=== PATIENT | female | born 1930 | race Caucasian/White ===

== ENCOUNTER 2017-08-10 03:17 | Inpatient (IN) | payer OTHER ==
[2017-08-10 03:29] VITALS: BMI 23.1
[2017-08-10] MEDS ORDERED: ACETAMINOPHEN INJECTION 100 ML IVPB ONE (03:36)
[2017-08-10] MEDS ORDERED: VANCOMYCIN 1,000 MG in DEXTROSE 5%-WATER - 250 ML IVPB ONE (04:05)
[2017-08-10] MEDS ORDERED: SODIUM CHLORIDE 1,000 ML IV STA ×2 (04:05→04:09)
[2017-08-10 04:25] LABS: BASO % 0.1 % (0-2.0); HEMATOCRIT 19.7 % (32.4-45.2); LYMPH % 5.6 % (8-40); MCH 26.6 pg (25.7-33.7); MEAN CELL VOLUME 83.2 fl (80-96); MEAN PLT VOLUME 8.2 fl (7.5-11.1); MONO % 7.6 % (3.8-10.2); NEUT % 86.7 % (42.8-82.8); PLATELET COUNT 238 K/MM3 (134-434); RBC 2.36 M/mm3 (3.60-5.2); WHITE BLOOD COUNT 6.6 K/mm3 (4.0-10.0)
[2017-08-10 04:30] LABS: HEMOGLOBIN 6.3 GM/dL (10.7-15.3)
[2017-08-10] MEDS ORDERED: VANCOMYCIN 1 GRAM (PRE-DOCKED) 1,000 MG/250 ML BAG IVPB ONE (04:31)
[2017-08-10 04:36] LABS: VENOUS PH 7.4 (7.32-7.42); VENOUS PO2 51.3 mmHg (28-48)
[2017-08-10 04:37] LABS: INR 1.58 (0.82-1.09); PROTHROMBIN TIME (PATIENT) 17.8 SEC (9.98-11.88)
[2017-08-10 04:40] LABS: ACTIVATED PTT 42.4 SECONDS (26.9-34.4)
[2017-08-10 04:49] LABS: ALBUMIN 1.2 g/dl (3.4-5.0); ANION GAP 9 (8-16); BILIRUBIN,TOTAL 0.3 mg/dL (0.2-1.0); BLOOD UREA NITROGEN 17 mg/dL (7-18); CHLORIDE 122 mmol/L (98-107); CO2 15 mmol/L (21-32); CREATININE 0.2 mg/dL (0.55-1.02); GLUCOSE,RANDOM 74 mg/dL (74-106); SGOT/AST 14 U/L (15-37); SGPT/ALT 12 U/L (12-78); SODIUM 146 mmol/L (136-145); TOT PROT 3.7 g/dl (6.4-8.2)
[2017-08-10 04:51] LABS: ALK PHOS 64 U/L (45-117)
[2017-08-10 04:55] LABS: CALCIUM < 5.0 mg/dL (8.5-10.1); POTASSIUM 2.4 mmol/L (3.5-5.1)
[2017-08-10] MEDS ORDERED: CALCIUM GLUCONATE 10% - 1,000 MG/10 ML VIAL IVPB ONE ×2 (04:55→04:58)
--- NOTE | 2017-08-10 05:13 | PDOC ---
History of Present Illness - General History Source: EMS, Old Records, Unavil. due to pt. cond. Exam Limitations: Dementia, Unresponsive - History of Present Illness Initial Comments: 08/10/17 05:08 Pt seen immediately upon arrival to the ER for SEPSIS, FEVER, HYPOTENSION. 86yoF hx of severe dementia, stroke w/ contractures, colostomy (unclear reason) , ovarian CA, prior UTI presents from [place] after EMS called "GI bleed and AMS." EMS reports that pt was consitpated, NH gave her a laxative and when the arrived she was covered in light brown nonblood stool from her ostomy. Pt found to be febrile to 103F at that time w/ hypotension to SBP 80's, hypoxia to 90% on RA and tachycardia to 100-110. Unknown baseline mental status, but per report , pt is now altered. Pt makes no verbal response, withdraws from painful stimuli. ROS UTO PMHx as per [facility] records Allerg: Cefalosporins <Madeleine Vallejo - Last Filed: 08/10/17 05:23> <Ulysses Oneal - Last Filed: 08/12/17 01:09> - General Chief Complaint: SIRS, Suspected/Possible Stated Complaint: GI BLEED Past History - Travel Traveled outside of the country in the last 30 days: No - Past Medical History Dementia: Yes - Suicide/Smoking/Psychosocial Hx Smoking History: Unknown if ever smoked Have you smoked in the past 12 months: No Information on smoking cessation initiated: No Hx Alcohol Use: No Drug/Substance Use Hx: No <Madeleine Vallejo - Last Filed: 08/10/17 05:23> <Ulysses Oneal - Last Filed: 08/12/17 01:09> - Past Medical History Allergies/Adverse Reactions: Allergies Allergy/AdvReac Type Severity Reaction Status Date / Time cefuroxime Allergy Verified 08/10/17 03:25 donepezil [From Aricept] Allergy Verified 08/10/17 03:25 meloxicam Allergy Verified 08/10/17 03:25 pregabalin Allergy Verified 08/10/17 03:25 Home Medications: Ambulatory Orders Acetaminophen [Tylenol -] 650 mg PO Q6H PRN 08/10/17 Amitriptyline HCl 25 mg PO HS 08/10/17 Baclofen [Lioresal -] 10 mg PO QID 08/10/17 Beta-Carotene(A)-Vits C and E [E-400 C-500 & Beta Carotene] 1 each PO DAILY 11/22 Bisacodyl Suppository [Dulcolax Suppository -] 10 mg RC HS PRN 08/10/17 Cholecalciferol (Vitamin D3) [Vitamin D3] 1,000 unit PO DAILY 08/10/17 Citalopram Hydrobromide [Celexa -] 20 mg PO HS 08/10/17 Docusate Sodium [Colace] 100 mg PO TID 08/10/17 Estradiol [Estrace] 42.5 gm VG ASDIR 08/10/17 Fesoterodine Fumarate [Toviaz] 4 mg PO DAILY 08/10/17 Gabapentin [Neurontin] 300 mg PO BID 08/10/17 Galantamine HBr [Razadyne ER] 8 mg PO DAILY 08/10/17 Heparin - 5,000 unit SQ Q12H 08/10/17 Lactobacillus Acidophilus [Acidophilus] 1 each PO BID 08/10/17 Levothyroxine [Synthroid -] 50 mcg PO DAILY 08/10/17 Linaclotide [Linzess] 290 mcg PO DAILY 08/10/17 Mag Hydrox/Al Hydrox/Simeth [Mylanta Oral Suspension -] 30 ml PO Q6H PRN Magnesium Hydrox 2400MG/30Ml [Milk of Magnesia -] 30 ml PO DAILY PRN 08/10/17 Melatonin 3 mg PO HS 08/10/17 Mirabegron [Myrbetriq] 50 mg PO DAILY 08/10/17 Multivitamins [Tab-A-Vit -] 1 tab PO DAILY 08/10/17 [place]-3 Fatty Acids [[place]-3] 1,000 mg PO DAILY 08/10/17 Pramipexole Di-HCl [Mirapex] 0.25 mg PO TID 08/10/17 Sennosides [Senokotxtra] 17.2 mg PO HS 08/10/17 Simethicone 80 mg PO BID PRN 08/10/17 Sodium Chloride 1,000 mg PO BID 08/10/17 Ubidecarenone [Co Q-10] 100 mg PO DAILY 08/10/17 oxyCODONE SR [Oxycontin] 10 mg PO Q12H 08/10/17 Review of Systems - Review of Systems Able to Perform ROS?: No (no verbal response) <Madeleine Vallejo - Last Filed: 08/10/17 05:23> *Physical Exam - Vital Signs Last Vital Signs Temp Pulse Resp BP Pulse Ox 103.0 F H 106 H 16 77/55 90 L 08/10/17 03:26 08/10/17 03:26 08/10/17 03:26 08/10/17 03:26 08/10/17 03:26 - Physical Exam Comments: 08/10/17 05:13 NAD, ch ronically ill appearing eyes closed, KATHRYN MM very dry, no cervical LAD tachy, no m/r/g moderate air movement no clear tenderness, Ostomy pink no rash, no visible decub no edema, + contractures of BLE no rash A&O x 0 <JessychachaMadeleine Alvaro - Last Filed: 08/10/17 05:23> - Vital Signs Last Vital Signs Temp Pulse Resp BP Pulse Ox 103.0 F H 106 H 16 77/55 90 L 08/10/17 03:26 08/10/17 03:26 08/10/17 03:26 08/10/17 03:26 08/10/17 03:26 <Ulysses Oneal - Last Filed: 08/12/17 01:09> Procedures - Intubation Intubation Method: nasotracheal Blade used: Mac Tube Size (Fr): 8.0 Medications: Etomidate, Rocuronium Tube position confirmed by: Direct visualization, CO2 detector, Chest x-ray, Breath sounds Breath Sounds after Intubation: equal Intubation Complications: no complications (Patient with unscucesful paralysis following first Rocorunium administration 100mg. Required second push of Osbaldo with success. ) Post Intubation Xray: Yes <Ulysses Oneal - Last Filed: 08/12/17 01:09> ED Treatment Course - LABORATORY CBC & Chemistry Diagram: 08/10/17 04:11 08/10/17 04:11 - ADDITIONAL ORDERS Additional order review: Laboratory Results 08/10/17 08/10/17 08/10/17 04:24 04:11 04:11 PT with INR INR PTT (Actin FS) VBG pH 7.40 POC VBG pCO2 42.0 POC VBG pO2 51.3 H Mixed VBG HCO3 25.7 H Sodium 146 H Potassium 2.4 L* Chloride 122 H Carbon Dioxide 15 L Anion Gap 9 BUN 17 Creatinine 0.2 L Creat Clearance w eGFR > 60 Random Glucose 74 Lactic Acid 1.4 Calcium < 5.0 L* Total Bilirubin 0.3 AST 14 L ALT 12 Alkaline Phosphatase 64 Creatine Kinase 31 Troponin I 0.03 Total Protein 3.7 L Albumin 1.2 L Crossmatch 08/10/17 08/10/17 04:11 04:11 PT with INR 17.80 H INR 1.58 H PTT (Actin FS) 42.4 H VBG pH POC VBG pCO2 POC VBG pO2 Mixed VBG HCO3 Sodium Potassium Chloride Carbon Dioxide Anion Gap BUN Creatinine Creat Clearance w eGFR Random Glucose Lactic Acid Calcium Total Bilirubin AST ALT Alkaline Phosphatase Creatine Kinase Troponin I Total Protein Albumin Crossmatch See Detail 08/10/17 04:11 RBC 2.36 L MCV 83.2 MCHC 32.0 RDW 17.0 H MPV 8.2 Neutrophils % 86.7 H Lymphocytes % 5.6 L Monocytes % 7.6 Eosinophils % 0.0 Basophils % 0.1 - Medications Given in the ED: ED Medications Discontinued Medications Generic Name Dose Route Start Last Admin Trade Name Freq PRN Reason Stop Dose Admin Sodium Chloride 1,000 mls @ 1,000 mls/hr 08/10/17 04:05 08/10/17 04:33 Normal Saline - IV 08/10/17 05:04 1,000 mls/hr ASDIR STA Administration Vancomycin HCl 1,000 mg/ 250 mls @ 250 mls/hr 08/10/17 04:05 08/10/17 04:33 Dextrose IVPB 08/10/17 05:04 250 mls/hr ONCE ONE Administration Protocol <Madeleine Vallejo - Last Filed: 08/10/17 05:23> - LABORATORY CBC & Chemistry Diagram: 08/11/17 11:13 08/11/17 11:13 - ADDITIONAL ORDERS Additional order review: Laboratory Results 08/10/17 08/10/17 08/10/17 06:00 04:24 04:11 PT with INR INR PTT (Actin FS) VBG pH 7.40 POC VBG pCO2 42.0 POC VBG pO2 51.3 H Mixed VBG HCO3 25.7 H Sodium Potassium Chloride Carbon Dioxide Anion Gap BUN Creatinine Creat Clearance w eGFR Random Glucose Lactic Acid 1.4 Calcium Total Bilirubin AST ALT Alkaline Phosphatase Creatine Kinase Troponin I Total Protein Albumin Urine Color Nyla Urine Appearance Slcloudy Urine pH 5.0 Ur Specific [place] 1.021 Urine Protein Negative Urine Glucose (UA) Negative Urine Ketones Trace H Urine Blood 1+ H Urine Nitrite Negative Urine Bilirubin 2.0 Urine Urobilinogen 4.0 e.u/dl H Ur Leukocyte Esterase 1+ H Urine WBC (Auto) 16 Urine RBC (Auto) 3 Ur Epithelial Cells Rare Urine Bacteria Many Hyaline Casts 6 Urine Mucus Rare Blood Type Antibody Screen Crossmatch 08/10/17 08/10/17 08/10/17 04:11 04:11 04:11 PT with INR 17.80 H INR 1.58 H PTT (Actin FS) 42.4 H VBG pH POC VBG pCO2 POC VBG pO2 Mixed VBG HCO3 Sodium 146 H Potassium 2.4 L* Chloride 122 H Carbon Dioxide 15 L Anion Gap 9 BUN 17 Creatinine 0.2 L Creat Clearance w eGFR > 60 Random Glucose 74 Lactic Acid Calcium < 5.0 L* Total Bilirubin 0.3 AST 14 L ALT 12 Alkaline Phosphatase 64 Creatine Kinase 31 Troponin I 0.03 Total Protein 3.7 L Albumin 1.2 L Urine Color Urine Appearance Urine pH Ur Specific [place] Urine Protein Urine Glucose (UA) Urine Ketones Urine Blood Urine Nitrite Urine Bilirubin Urine Urobilinogen Ur Leukocyte Esterase Urine WBC (Auto) Urine RBC (Auto) Ur Epithelial Cells Urine Bacteria Hyaline Casts Urine Mucus Blood Type O NEGATIVE Antibody Screen Negative Crossmatch See Detail 08/10/17 04:11 RBC 2.36 L MCV 83.2 MCHC 32.0 RDW 17.0 H MPV 8.2 Neutrophils % 86.7 H Lymphocytes % 5.6 L Monocytes % 7.6 Eosinophils % 0.0 Basophils % 0.1 - RADIOLOGY Radiology Studies Ordered: Category Date Time Status CXRPORT [CHEST X-RAY PORTABLE*] [RAD] Stat Radiology 08/10/17 06:56 Taken - Medications Given in the ED: ED Medications Discontinued Medications Generic Name Dose Route Start Last Admin Trade Name Freq PRN Reason Stop Dose Admin Calcium Gluconate 1,000 mg 08/10/17 04:55 08/10/17 06:17 Calcium Gluconate 10% - IVPB 08/10/17 04:56 1,000 mg ONCE ONE Administration Calcium Gluconate 1,000 mg 08/10/17 04:58 03/06/18 06:16 Calcium Gluconate 10% - IVPB 08/10/17 04:59 1,000 mg ONCE ONE Administration Etomidate 20 mg 08/10/17 06:04 08/10/17 06:17 Amidate - IVPUSH 08/10/17 06:05 20 mg NOW ONE Administration Levofloxacin 750 mg in 150 mls @ 100 mls/hr 08/10/17 04:08 08/10/17 04:33 Levaquin 750 Mg Premixed Ivpb - IVPB 08/10/17 05:37 100 mls/hr ONCE ONE Administration Sodium Chloride 1,000 mls @ 1,000 mls/hr 08/10/17 04:05 08/10/17 04:33 Normal Saline - IV 08/10/17 05:04 1,000 mls/hr ASDIR STA Administration Vancomycin HCl 1,000 mg/ 250 mls @ 250 mls/hr 08/10/17 04:05 08/10/17 04:33 Dextrose IVPB 08/10/17 05:04 250 mls/hr ONCE ONE Administration Protocol Sodium Chloride 1,000 mls @ 1,000 mls/hr 08/10/17 04:09 08/10/17 04:33 Normal Saline - IV 08/10/17 05:08 1,000 mls/hr ASDIR STA Administration Rocuronium [place] 100 mg 08/10/17 06:04 08/10/17 06:17 Zemuron - IVPUSH 08/10/17 06:05 100 mg ONCE ONE Administration <Ulysses Oneal - Last Filed: 08/12/17 01:09> Medical Decision Making - Critical Care Time Total Critical Care Time (minutes): 120 Critical Care Statement: The care of this patient involved high complexity decision making to prevent further life threatening deterioration of the patient 's condition and/or to evaluate & treat vital organ system(s) failure or risk of failure. - Medical Decision Making 08/10/17 05:16 86yoF presnets w/ AMS, dehydration, fever, tachycardia, hypoxia, hypotension c/ w severe sepsis of unknown etiology. - labs - cultures - foely/ua/ucx - ivf, levaquin, vanco - blood cultures x 2 - iv x 2 - cardaic moniotr - O2 via NRB - CXR - ICU. 08/10/17 05:21 Laboratory Tests 08/10/17 08/10/17 08/10/17 04:11 04:11 04:11 WBC 6.6 Hgb 6.3 L* Hct 19.7 L Plt Count 238 Sodium 146 H Potassium 2.4 L* Chloride 122 H Carbon Dioxide 15 L BUN 17 Creatinine 0.2 L Lactic Acid 1.4 Calcium < 5.0 L* PRBC ordered repeat BMP, electolyte repletion ordered admit ICU. Dr. Guaman accepting. <Madeleine Vallejo - Last Filed: 08/10/17 05:23> *DC/Admit/Observation/Transfer - Discharge Dispostion Admit: Yes <Madeleine Vallejo - Last Filed: 08/10/17 05:23> <Ulysses Oneal - Last Filed: 08/12/17 01:09> Diagnosis at time of Disposition: Severe sepsis - Discharge Dispostion Condition at time of disposition: Critical
[2017-08-10] MEDS ORDERED: RAPID SEQUENCE INTUBATION KIT NR ONE ×2 (05:59→06:38)
[2017-08-10] MEDS ORDERED: ETOMIDATE 40 MG/20 ML VIAL IVPUSH ONE (06:04)
[2017-08-10] MEDS ORDERED: ROCURONIUM BROMIDE 50 MG/5 ML VIAL IVPUSH ONE (06:04)
[2017-08-10] MEDS ORDERED: DOPAMINE 400 MG/D5W - 400,000 MCG/250 ML INFUS.BAG IVPB SCH (06:15)
[2017-08-10] MEDS ORDERED: DOPAMINE 400 MG/D5W - 400,000 MCG/250 ML INFUS.BAG IVPB ONE (06:16)
[2017-08-10] MEDS: KCL 10 MEQ IVPB 10 MEQ/100 ML INFUS.BAG IVPB SCH (06:17)
[2017-08-10 06:35] LABS: URINE APPEARANCE SLCLOUDY; URINE BLOOD 1+ (NEGATIVE); URINE COLOR AMBER; URINE GLUCOSE (UA) NEGATIVE (NEGATIVE); URINE KETONE TRACE (NEGATIVE); URINE NITRITE NEGATIVE (NEGATIVE); URINE PROTEIN NEGATIVE (NEGATIVE); URINE UROBILINOGEN 4.0 E.U/dl mg/dL (0.2-1.0)
[2017-08-10 06:44] LABS: URINE LEUK ESTERASE 1+ (NEGATIVE)
[2017-08-10 06:45] LABS: EPI CELLS RARE /HPF (FEW); URINE BACTERIA MANY /hpf (NONE SEEN); URINE HYALINE CAST 6 /lpf; URINE MUCUS RARE
[2017-08-10] MEDS ORDERED: PROPOFOL 1,000,000 MCG/100 ML VIAL ONE (06:47)
[2017-08-10] MEDS ORDERED: CALCIUM GLUCONATE 10% - 1,000 MG/10 ML VIAL ONE (06:55)
[2017-08-10] MEDS ORDERED: PANTOPRAZOLE SODIUM 80 MG in SODIUM CHLORIDE 100 ML IVPB SCH (07:00)
--- NOTE | 2017-08-10 07:58 | HP ---
CHIEF COMPLAINT: ams PCP: from [facility] HISTORY OF PRESENT ILLNESS: This is an 86 year old female brought in by ambulance from [facility] after being found laying in her bed, covered in her own feces with a fever of 103F, hypotensive, SBP 80s. As per chart and report, patient was given a laxative at [place]. She has colostomy bag, which was filled with light brown stool, no melena or BRB reported. Baseline mental status is mild dementia, as per [place], she was altered. ER course was notable for: Hypotensive. Hypoxic. Febrile. Severely anemic. Hypokalemic. Sepsis protocol activated. She was intubated in the ER, and started on dopamine due to continuos hypotension despite fluid resuscitation. Recent Travel: no PAST MEDICAL HISTORY: mild dementia, stroke with residual contracture, colostomy, ovarian CA, UTI PAST SURGICAL HISTORY:unknown Social History:unknown Family History:unknown Allergies cefuroxime Allergy (Verified 08/10/17 03:25) donepezil [From Aricept] Allergy (Verified 08/10/17 03:25) meloxicam Allergy (Verified 08/10/17 03:25) pregabalin Allergy (Verified 08/10/17 03:25) HOME MEDICATIONS: Home Medications Medication Instructions Recorded Acetaminophen [Tylenol -] 650 mg PO Q6H PRN 08/10/17 Amitriptyline HCl 25 mg PO HS 08/10/17 Baclofen [Lioresal -] 10 mg PO QID 08/10/17 Beta-Carotene(A)-Vits C and E 1 each PO DAILY 08/10/17 [E-400 C-500 & Beta Carotene] Bisacodyl Suppository [Dulcolax 10 mg RC HS PRN 08/10/17 Suppository -] Cholecalciferol (Vitamin D3) 1,000 unit PO DAILY 08/10/17 [Vitamin D3] Citalopram Hydrobromide [Celexa -] 20 mg PO HS 08/10/17 Docusate Sodium [Colace] 100 mg PO TID 08/10/17 Estradiol [Estrace] 42.5 gm VG ASDIR 08/10/17 Fesoterodine Fumarate [Toviaz] 4 mg PO DAILY 08/10/17 Gabapentin [Neurontin] 300 mg PO BID 08/10/17 Galantamine HBr [Razadyne ER] 8 mg PO DAILY 08/10/17 Heparin - 5,000 unit SQ Q12H 08/10/17 Lactobacillus Acidophilus 1 each PO BID 08/10/17 [Acidophilus] Levothyroxine [Synthroid -] 50 mcg PO DAILY 08/10/17 Linaclotide [Linzess] 290 mcg PO DAILY 08/10/17 Mag Hydrox/Al Hydrox/Simeth 30 ml PO Q6H PRN 08/10/17 [Mylanta Oral Suspension -] Magnesium Hydrox 2400MG/30Ml [Milk 30 ml PO DAILY PRN 08/10/17 of Magnesia -] Melatonin 3 mg PO HS 08/10/17 Mirabegron [Myrbetriq] 50 mg PO DAILY 08/10/17 Multivitamins [Tab-A-Vit -] 1 tab PO DAILY 08/10/17 [place]-3 Fatty Acids [[place]-3] 1,000 mg PO DAILY 08/10/17 Pramipexole Di-HCl [Mirapex] 0.25 mg PO TID 08/10/17 Sennosides [Senokotxtra] 17.2 mg PO HS 08/10/17 Simethicone 80 mg PO BID PRN 08/10/17 Sodium Chloride 1,000 mg PO BID 08/10/17 Ubidecarenone [Co Q-10] 100 mg PO DAILY 08/10/17 oxyCODONE SR [Oxycontin] 10 mg PO Q12H 08/10/17 REVIEW OF SYSTEMS unable to attain PHYSICAL EXAMINATION Vital Signs - 24 hr 08/10/17 08/10/17 03:26 07:14 Temperature 103.0 F H Pulse Rate 106 H 120 H Respiratory 16 14 Rate Blood Pressure 77/55 O2 Sat by Pulse 90 L 99 Oximetry (%) GENERAL: intubated and sedated; rotated and contracted LUNGS: anterior auscultation clear HEART: Regular rate and rhythm, normal S1 and S2 without murmur, rub or gallop. ABDOMEN: soft; with colostomy MUSCULOSKELETAL:contracted UPPER EXTREMITIES: 2+ pulses, warm, well-perfused. No cyanosis. No clubbing. No peripheral edema. LOWER EXTREMITIES: 2+ pulses, warm, well-perfused. No calf tenderness. No peripheral edema. Laboratory Results - last 24 hr 08/10/17 08/10/17 08/10/17 04:11 04:11 04:11 WBC 6.6 RBC 2.36 L Hgb 6.3 L* Hct 19.7 L MCV 83.2 MCH 26.6 MCHC 32.0 RDW 17.0 H Plt Count 238 MPV 8.2 Neutrophils % 86.7 H Lymphocytes % 5.6 L Monocytes % 7.6 Eosinophils % 0.0 Basophils % 0.1 PT with INR 17.80 H INR 1.58 H PTT (Actin FS) 42.4 H VBG pH POC VBG pCO2 POC VBG pO2 Mixed VBG HCO3 Sodium Potassium Chloride Carbon Dioxide Anion Gap BUN Creatinine Creat Clearance w eGFR Random Glucose Lactic Acid Calcium Total Bilirubin AST ALT Alkaline Phosphatase Creatine Kinase Troponin I Total Protein Albumin Urine Color Urine Appearance Urine pH Ur Specific [place] Urine Protein Urine Glucose (UA) Urine Ketones Urine Blood Urine Nitrite Urine Bilirubin Urine Urobilinogen Ur Leukocyte Esterase Urine WBC (Auto) Urine RBC (Auto) Ur Epithelial Cells Urine Bacteria Hyaline Casts Urine Mucus Blood Type O NEGATIVE Antibody Screen Negative Crossmatch See Detail 08/10/17 08/10/17 08/10/17 04:11 04:11 04:24 WBC RBC Hgb Hct MCV MCH MCHC RDW Plt Count MPV Neutrophils % Lymphocytes % Monocytes % Eosinophils % Basophils % PT with INR INR PTT (Actin FS) VBG pH 7.40 POC VBG pCO2 42.0 POC VBG pO2 51.3 H Mixed VBG HCO3 25.7 H Sodium 146 H Potassium 2.4 L* Chloride 122 H Carbon Dioxide 15 L Anion Gap 9 BUN 17 Creatinine 0.2 L Creat Clearance w eGFR > 60 Random Glucose 74 Lactic Acid 1.4 Calcium < 5.0 L* Total Bilirubin 0.3 AST 14 L ALT 12 Alkaline Phosphatase 64 Creatine Kinase 31 Troponin I 0.03 Total Protein 3.7 L Albumin 1.2 L Urine Color Urine Appearance Urine pH Ur Specific [place] Urine Protein Urine Glucose (UA) Urine Ketones Urine Blood Urine Nitrite Urine Bilirubin Urine Urobilinogen Ur Leukocyte Esterase Urine WBC (Auto) Urine RBC (Auto) Ur Epithelial Cells Urine Bacteria Hyaline Casts Urine Mucus Blood Type Antibody Screen Crossmatch 08/10/17 08/10/17 06:00 07:10 WBC RBC Hgb Hct MCV MCH MCHC RDW Plt Count MPV Neutrophils % Lymphocytes % Monocytes % Eosinophils % Basophils % PT with INR INR PTT (Actin FS) VBG pH POC VBG pCO2 POC VBG pO2 Mixed VBG HCO3 Sodium Cancelled Potassium Cancelled Chloride Cancelled Carbon Dioxide Cancelled Anion Gap Cancelled BUN Cancelled Creatinine Cancelled Creat Clearance w eGFR Random Glucose Cancelled Lactic Acid Calcium Cancelled Total Bilirubin AST ALT Alkaline Phosphatase Creatine Kinase Troponin I Total Protein Albumin Urine Color Nyla Urine Appearance Slcloudy Urine pH 5.0 Ur Specific [place] 1.021 Urine Protein Negative Urine Glucose (UA) Negative Urine Ketones Trace H Urine Blood 1+ H Urine Nitrite Negative Urine Bilirubin 2.0 Urine Urobilinogen 4.0 e.u/dl H Ur Leukocyte Esterase 1+ H Urine WBC (Auto) 16 Urine RBC (Auto) 3 Ur Epithelial Cells Rare Urine Bacteria Many Hyaline Casts 6 Urine Mucus Rare Blood Type Antibody Screen Crossmatch ASSESSMENT/PLAN: This is an 86 year old female with a past medical history of dementia, stroke, colostomy (unknown reasoning), ovarian Ca(unknown treatment), hx UTIs, brought in by ambulance after being found with altered mental status, covered in her own feces, hypotensive, febrile and hypoxic. Upon arrival to ER she was intubated. Transported to ICU, sepsis protocol activated. This also could be due to GI bleed, hemoglobin 6.3; #septic shock vs hypotensive shock from possible GI bleed ? -intubated and sedated on mechanical ventilation AC -vasopressors, currently on dopamine; keep MAP >65 -IV antibiotics; ID on board -head culture -CXR -1PRBC unit ordered; repeat cbc after transfusion, if heme <7; transfuse -check heme occult -IV protonix -GI consulted #hypokalemia: -s/p 3 K rider -repeat chemistry after transfusion #hypocalcemia: -corrected Ca was 7.2; s/p 2gm ca gluconate; repeat lab Diet: NPO Fluids: s/p 2L of NS VTE: scds Disposition: ICU case discussed with attending Dr. Jaime Reynoso PGY-2 Problem List - Problem (1) Septic shock Code(s): A41.9 - SEPSIS, UNSPECIFIED ORGANISM; R65.21 - SEVERE SEPSIS WITH SEPTIC SHOCK Visit type - Emergency Visit Emergency Visit: Yes Care time: The patient presented to the Emergency Department on the above date and was hospitalized for further evaluation of their emergent condition. - New Patient This patient is new to me today: Yes Date on this admission: 08/10/17 - Critical Care Critical Care patient: Yes Total Critical Care Time (in minutes): 35 Critical Care Statement: The care of this patient involved high complexity decision making to prevent further life threatening deterioration of the patient 's condition and/or to evaluate & treat vital organ system(s) failure or risk of failure. Hospitalist Screening - Colonoscopy Questionnaire Colonoscopy Questionnaire: Colonoscopy Questionnaire - Patient: 50 - 75 years old and never had a screening colonoscopy: No History of colon or rectal polyps, or CA: Unknown History of IBD, Crohn's disease or UC: Unknown History of abdominal radiation therapy as a child: Unknown - Relative: 1 with colon or rectal CA, or polyps at age 60 or younger: Unknown Colon or rectal CA diagnosed at age 45 or younger: Unknown Multiple relatives with colon or rectal CA: Unknown - Outcome: Screening Result: Negative Screen
[2017-08-10 08:30] LABS: ANION GAP 13 (8-16); BLOOD UREA NITROGEN 27 mg/dL (7-18); CALCIUM 9.3 mg/dL (8.5-10.1); CHLORIDE 101 mmol/L (98-107); CO2 19 mmol/L (21-32); CREATININE 0.8 mg/dL (0.55-1.02); GLUCOSE,RANDOM 128 mg/dL (74-106); POTASSIUM 4.5 mmol/L (3.5-5.1); SODIUM 133 mmol/L (136-145)
[2017-08-10 08:30] LABS: ARTERIAL BLD GAS O2 SATURATION 99.7 % (90-98.9); ARTERIAL BLOOD GAS BASE EXCESS -2.1 meq/l (-2-2); ARTERIAL BLOOD GAS PCO2 39.4 mmHg (35-45); ARTERIAL BLOOD GAS pH 7.37 (7.35-7.45)
[2017-08-10 08:31] LABS: ALLENS TEST POSITIVE
[2017-08-10] MEDS ORDERED: PANTOPRAZOLE SODIUM 160 MG in DEXTROSE 5%-WATER - 290 ML IVPB SCH (08:45)
--- NOTE | 2017-08-10 08:51 | PN ---
Teaching Attending Note Name of Resident: Ca Reynoso ATTENDING PHYSICIAN STATEMENT I saw and evaluated the patient. I reviewed the resident's note and discussed the case with the resident. I agree with the resident's findings and plan as documented. SUBJECTIVE: This is an 86 year old woman with a history of dementia, CVA, ovarian cancer who was sent to the ED from [facility] after she was found to be febrile, hypotensive, tachycardic. She was also covered in stool from her colostomy. OBJECTIVE: Vital Signs Period Temp Pulse Resp BP Sys/Forte Pulse Ox Last 24 Hr 103.0 F 103-120 14-18 77-123/55-70 90-100 GENERAL: Intubated, sedated HEART: S1S2, tachycardic LUNGS: Clear anteriorly ABDOMEN: Soft, non-distended, normal BS, colostomy site clean EXTREMITIES: No edema Laboratory Tests 08/10/17 08/10/17 08/10/17 04:11 04:11 04:11 WBC 6.6 RBC 2.36 L Hgb 6.3 L* Hct 19.7 L MCV 83.2 MCH 26.6 MCHC 32.0 RDW 17.0 H Plt Count 238 MPV 8.2 Neutrophils % 86.7 H Lymphocytes % 5.6 L Monocytes % 7.6 Eosinophils % 0.0 Basophils % 0.1 PT with INR 17.80 H INR 1.58 H PTT (Actin FS) 42.4 H Anticoagulation Therapy ABG pH ABG pCO2 at Pt Temp ABG pO2 at Pt Temp ABG HCO3 ABG O2 Sat (Measured) ABG O2 Content ABG Base Excess Geoffrey Test VBG pH POC VBG pCO2 POC VBG pO2 Mixed VBG HCO3 O2 Delivery Device Oxygen Flow Rate Vent Mode Vent Rate Mechanical Rate Pressure Support Vent Sodium Potassium Chloride Carbon Dioxide Anion Gap BUN Creatinine Creat Clearance w eGFR Random Glucose Lactic Acid Calcium Total Bilirubin AST ALT Alkaline Phosphatase Creatine Kinase Troponin I Total Protein Albumin Urine Color Urine Appearance Urine pH Ur Specific [place] Urine Protein Urine Glucose (UA) Urine Ketones Urine Blood Urine Nitrite Urine Bilirubin Urine Urobilinogen Ur Leukocyte Esterase Urine WBC (Auto) Urine RBC (Auto) Ur Epithelial Cells Urine Bacteria Hyaline Casts Urine Mucus Blood Type O NEGATIVE Antibody Screen Negative Crossmatch See Detail 08/10/17 08/10/17 08/10/17 04:11 04:11 04:24 WBC RBC Hgb Hct MCV MCH MCHC RDW Plt Count MPV Neutrophils % Lymphocytes % Monocytes % Eosinophils % Basophils % PT with INR INR PTT (Actin FS) Anticoagulation Therapy ABG pH ABG pCO2 at Pt Temp ABG pO2 at Pt Temp ABG HCO3 ABG O2 Sat (Measured) ABG O2 Content ABG Base Excess Geoffrey Test VBG pH 7.40 POC VBG pCO2 42.0 POC VBG pO2 51.3 H Mixed VBG HCO3 25.7 H O2 Delivery Device Oxygen Flow Rate Vent Mode Vent Rate Mechanical Rate Pressure Support Vent Sodium 146 H Potassium 2.4 L* Chloride 122 H Carbon Dioxide 15 L Anion Gap 9 BUN 17 Creatinine 0.2 L Creat Clearance w eGFR > 60 Random Glucose 74 Lactic Acid 1.4 Calcium < 5.0 L* Total Bilirubin 0.3 AST 14 L ALT 12 Alkaline Phosphatase 64 Creatine Kinase 31 Troponin I 0.03 Total Protein 3.7 L Albumin 1.2 L Urine Color Urine Appearance Urine pH Ur Specific [place] Urine Protein Urine Glucose (UA) Urine Ketones Urine Blood Urine Nitrite Urine Bilirubin Urine Urobilinogen Ur Leukocyte Esterase Urine WBC (Auto) Urine RBC (Auto) Ur Epithelial Cells Urine Bacteria Hyaline Casts Urine Mucus Blood Type Antibody Screen Crossmatch 08/10/17 08/10/17 08/10/17 05:29 06:00 07:10 WBC RBC Hgb Hct MCV MCH MCHC RDW Plt Count MPV Neutrophils % Lymphocytes % Monocytes % Eosinophils % Basophils % PT with INR INR PTT (Actin FS) Anticoagulation Therapy ABG pH ABG pCO2 at Pt Temp ABG pO2 at Pt Temp ABG HCO3 ABG O2 Sat (Measured) ABG O2 Content ABG Base Excess Geoffrey Test VBG pH POC VBG pCO2 POC VBG pO2 Mixed VBG HCO3 O2 Delivery Device Oxygen Flow Rate Vent Mode Vent Rate Mechanical Rate Pressure Support Vent Sodium 133 L Potassium 4.5 Chloride 101 Carbon Dioxide 19 L Anion Gap 13 BUN 27 H Creatinine 0.8 Creat Clearance w eGFR Random Glucose 128 H Lactic Acid Calcium 9.3 Total Bilirubin AST ALT Alkaline Phosphatase Creatine Kinase Troponin I Total Protein Albumin Urine Color Nyla Urine Appearance Slcloudy Urine pH 5.0 Ur Specific [place] 1.021 Urine Protein Negative Urine Glucose (UA) Negative Urine Ketones Trace H Urine Blood 1+ H Urine Nitrite Negative Urine Bilirubin 2.0 Urine Urobilinogen 4.0 e.u/dl H Ur Leukocyte Esterase 1+ H Urine WBC (Auto) 16 Urine RBC (Auto) 3 Ur Epithelial Cells Rare Urine Bacteria Many Hyaline Casts 6 Urine Mucus Rare Blood Type O NEGATIVE Antibody Screen Negative Crossmatch 08/10/17 08:20 WBC RBC Hgb Hct MCV MCH MCHC RDW Plt Count MPV Neutrophils % Lymphocytes % Monocytes % Eosinophils % Basophils % PT with INR INR PTT (Actin FS) Anticoagulation Therapy No Result Required. ABG pH 7.37 ABG pCO2 at Pt Temp 39.4 ABG pO2 at Pt Temp 333.0 H* ABG HCO3 22.3 ABG O2 Sat (Measured) 99.7 H* ABG O2 Content 15.6 ABG Base Excess -2.1 L Geoffrey Test Positive VBG pH POC VBG pCO2 POC VBG pO2 Mixed VBG HCO3 O2 Delivery Device No Result Required. Oxygen Flow Rate Yes Vent Mode No Result Required. Vent Rate No Result Required. Mechanical Rate No Result Required. Pressure Support Vent No Result Required. Sodium Potassium Chloride Carbon Dioxide Anion Gap BUN Creatinine Creat Clearance w eGFR Random Glucose Lactic Acid Calcium Total Bilirubin AST ALT Alkaline Phosphatase Creatine Kinase Troponin I Total Protein Albumin Urine Color Urine Appearance Urine pH Ur Specific [place] Urine Protein Urine Glucose (UA) Urine Ketones Urine Blood Urine Nitrite Urine Bilirubin Urine Urobilinogen Ur Leukocyte Esterase Urine WBC (Auto) Urine RBC (Auto) Ur Epithelial Cells Urine Bacteria Hyaline Casts Urine Mucus Blood Type Antibody Screen Crossmatch Home Medications Medication Instructions Recorded Acetaminophen [Tylenol -] 650 mg PO Q6H PRN 08/10/17 Amitriptyline HCl 25 mg PO HS 08/10/17 Baclofen [Lioresal -] 10 mg PO QID 08/10/17 Beta-Carotene(A)-Vits C and E 1 each PO DAILY 08/10/17 [E-400 C-500 & Beta Carotene] Bisacodyl Suppository [Dulcolax 10 mg RC HS PRN 08/10/17 Suppository -] Cholecalciferol (Vitamin D3) 1,000 unit PO DAILY 08/10/17 [Vitamin D3] Citalopram Hydrobromide [Celexa -] 20 mg PO HS 08/10/17 Docusate Sodium [Colace] 100 mg PO TID 08/10/17 Estradiol [Estrace] 42.5 gm VG ASDIR 08/10/17 Fesoterodine Fumarate [Toviaz] 4 mg PO DAILY 08/10/17 Gabapentin [Neurontin] 300 mg PO BID 08/10/17 Galantamine HBr [Razadyne ER] 8 mg PO DAILY 08/10/17 Heparin - 5,000 unit SQ Q12H 08/10/17 Lactobacillus Acidophilus 1 each PO BID 08/10/17 [Acidophilus] Levothyroxine [Synthroid -] 50 mcg PO DAILY 08/10/17 Linaclotide [Linzess] 290 mcg PO DAILY 08/10/17 Mag Hydrox/Al Hydrox/Simeth 30 ml PO Q6H PRN 08/10/17 [Mylanta Oral Suspension -] Magnesium Hydrox 2400MG/30Ml [Milk 30 ml PO DAILY PRN 08/10/17 of Magnesia -] Melatonin 3 mg PO HS 08/10/17 Mirabegron [Myrbetriq] 50 mg PO DAILY 08/10/17 Multivitamins [Tab-A-Vit -] 1 tab PO DAILY 08/10/17 [place]-3 Fatty Acids [[place]-3] 1,000 mg PO DAILY 08/10/17 Pramipexole Di-HCl [Mirapex] 0.25 mg PO TID 08/10/17 Sennosides [Senokotxtra] 17.2 mg PO HS 08/10/17 Simethicone 80 mg PO BID PRN 08/10/17 Sodium Chloride 1,000 mg PO BID 08/10/17 Ubidecarenone [Co Q-10] 100 mg PO DAILY 08/10/17 oxyCODONE SR [Oxycontin] 10 mg PO Q12H 08/10/17 ASSESSMENT AND PLAN:
--- NOTE | 2017-08-10 08:58 | CONSULT ---
Consultation: UPDATE: 14:12, Primary team, myself, and Kerri from palliative care spoke to family about pt's wishes and it was concluded to withdraw treatment, place on morphine gtt, and to passionately extubate the patient by her HCP and fellow nuns. It was agreed to wait for her cousin and two other fellow nuns to arrive before extubation takes place due to the unknown time that she may pass. Dr. Dudley is aware of the situation. ICU Resident HISTORY OF PRESENT ILLNESS: 86yo F with history of mild dementia, functional quadraplegia, CVA, bowel obstruction s/p colostomy, ovarian Ca who presents to the hospital after being tachycardic, feverish to 103, and unresponsive. It was noted by the intermediate papers that she had one episode of emesis that was dark brown. It was also noted per medical chart that she was covered in her own feces with her colostomy bag filled. Per the chart pt's baseline is mild dementia with "slight alteration" and contracted. No melena or bright red blood per rectum was noted Pt is currently intubated and sedated and received 2L NS in ED with one time dosing of vancomycin. Pt was found to be hypotensive and was placed on dopamine at 5mcg/hr. PHYSICAL EXAMINATION Vital Signs - 24 hr 08/10/1718 18 03:26 07:14 07:38 Temperature 103.0 F H Pulse Rate 106 H 120 H Pulse Rate [ 103 H Left Radial] Respiratory 16 14 18 Rate Blood Pressure 77/55 Blood Pressure 123/70 [Right Arm] O2 Sat by Pulse 90 L 99 100 Oximetry (%) Physical Examination Gen: Intubated and sedated HEENT: NC/AT, Pinpoint pupils with sluggish reactions, dry mucosa, no JVD Lungs: CTA bilaterally, no wheezes, rhonchi or rales noted. AC mode of vent TV 500/rate 16/FiO2 100 currently/PEEP 5 Cardiac: Tachycardic, regular rhythm, normal S1 and S2 with no appreciable murmur Abdomen: Colostomy noted with filled foul-smelling stool, soft, nondistended , hypoactive bowel sounds aucultated, no hepatomegaly Extremities: DP 2+ pulses, slightly cool feet, trace edema at feet noted, 20gauge IV in L ankle, pearson noted with 200-250cc of urine Neuro: Pinpoint pupils, rest of exam cannot be fully assessed due to clinical status Skin: No decubitus ulcers noted, no rash or other lesions noted Laboratory Last Values WBC 6.6 K/mm3 (4.0-10.0) 08/10/17 04:11 RBC 2.36 M/mm3 (3.60-5.2) L 08/10/17 04:11 Hgb 6.3 GM/dL (10.7-15.3) L* 08/10/17 04:11 Hct 19.7 % (32.4-45.2) L 08/10/17 04:11 MCV 83.2 fl (80-96) 08/10/17 04:11 MCH 26.6 pg (25.7-33.7) 08/10/17 04:11 MCHC 32.0 g/dl (32.0-36.0) 08/10/17 04:11 RDW 17.0 % (11.6-15.6) H 08/10/17 04:11 Plt Count 238 K/MM3 (134-434) 08/10/17 04:11 MPV 8.2 fl (7.5-11.1) 08/10/17 04:11 Neutrophils % 86.7 % (42.8-82.8) H 08/10/17 04:11 Lymphocytes % 5.6 % (8-40) L 08/10/17 04:11 Monocytes % 7.6 % (3.8-10.2) 08/10/17 04:11 Eosinophils % 0.0 % (0-4.5) 08/10/17 04:11 Basophils % 0.1 % (0-2.0) 08/10/17 04:11 PT with INR 17.80 SEC (9.98-11.88) H 08/10/17 04:11 INR 1.58 (0.82-1.09) H 08/10/17 04:11 PTT (Actin FS) 42.4 SECONDS (26.9-34.4) H 08/10/17 04:11 Anticoagulation Therapy No Result Required. 08/10/17 08:20 ABG pH 7.37 (7.35-7.45) 08/10/17 08:20 ABG pCO2 at Pt Temp 39.4 mmHg (35-45) 08/10/17 08:20 ABG pO2 at Pt Temp 333.0 mmHg (68-100) H* 08/10/17 08:20 ABG HCO3 22.3 meq/L (22-26) 08/10/17 08:20 ABG O2 Sat (Measured) 99.7 % (90-98.9) H* 08/10/17 08:20 ABG O2 Content 15.6 % vol (15-22) 08/10/17 08:20 ABG Base Excess -2.1 meq/l (-2-2) L 08/10/17 08:20 Geoffrey Test Positive 08/10/17 08:20 VBG pH 7.40 (7.32-7.42) 08/10/17 04:24 POC VBG pCO2 42.0 mmHg (38-52) 08/10/17 04:24 POC VBG pO2 51.3 mmHg (28-48) H 08/10/17 04:24 Mixed VBG HCO3 25.7 meq/L (19-25) H 08/10/17 04:24 O2 Delivery Device No Result Required. 08/10/17 08:20 Oxygen Flow Rate Yes 08/10/17 08:20 Vent Mode No Result Required. 08/10/17 08:20 Vent Rate No Result Required. 08/10/17 08:20 Mechanical Rate No Result Required. 08/10/17 08:20 Pressure Support Vent No Result Required. 08/10/17 08:20 Sodium 133 mmol/L (136-145) L 08/10/17 07:10 Potassium 4.5 mmol/L (3.5-5.1) 08/10/17 07:10 Chloride 101 mmol/L (98-107) 08/10/17 07:10 Carbon Dioxide 19 mmol/L (21-32) L 08/10/17 07:10 Anion Gap 13 (8-16) 08/10/17 07:10 BUN 27 mg/dL (7-18) H 08/10/17 07:10 Creatinine 0.8 mg/dL (0.55-1.02) 08/10/17 07:10 Creat Clearance w eGFR > 60 (>60) 08/10/17 04:11 Random Glucose 128 mg/dL (74-106) H 08/10/17 07:10 Lactic Acid 5.1 mmol/L (0.0-2.0) H* 08/10/17 11:35 Calcium 9.3 mg/dL (8.5-10.1) 08/10/17 07:10 Total Bilirubin 0.3 mg/dL (0.2-1.0) 08/10/17 04:11 AST 14 U/L (15-37) L 08/10/17 04:11 ALT 12 U/L (12-78) 08/10/17 04:11 Alkaline Phosphatase 64 U/L (45-117) 08/10/17 04:11 Creatine Kinase 31 IU/L (26-192) 08/10/17 04:11 Troponin I 0.03 ng/ml (0.00-0.05) 08/10/17 04:11 Total Protein 3.7 g/dl (6.4-8.2) L 08/10/17 04:11 Albumin 1.2 g/dl (3.4-5.0) L 08/10/17 04:11 Urine Color Nyla 08/10/17 06:00 Urine Appearance Slcloudy 08/10/17 06:00 Urine pH 5.0 (5.0-8.0) 08/10/17 06:00 Ur Specific [place] 1.021 (1.001-1.035) 08/10/17 06:00 Urine Protein Negative (NEGATIVE) 08/10/17 06:00 Urine Glucose (UA) Negative (NEGATIVE) 08/10/17 06:00 Urine Ketones Trace (NEGATIVE) H 08/10/17 06:00 Urine Blood 1+ (NEGATIVE) H 08/10/17 06:00 Urine Nitrite Negative (NEGATIVE) 08/10/17 06:00 Urine Bilirubin 2.0 (NEGATIVE) 08/10/17 06:00 Urine Urobilinogen 4.0 e.u/dl mg/dL (0.2-1.0) H 08/10/17 06:00 Ur Leukocyte Esterase 1+ (NEGATIVE) H 08/10/17 06:00 Urine WBC (Auto) 16 /hpf (3-5) 08/10/17 06:00 Urine RBC (Auto) 3 /hpf (0-3) 08/10/17 06:00 Ur Epithelial Cells Rare /HPF (FEW) 08/10/17 06:00 Urine Bacteria Many /hpf (NONE SEEN) 08/10/17 06:00 Hyaline Casts 6 /lpf 08/10/17 06:00 Urine Mucus Rare 08/10/17 06:00 Stool Occult Blood Negative (NEGATIVE) 08/10/17 11:00 Blood Type O NEGATIVE 08/10/17 05:29 Antibody Screen Negative 08/10/17 05:29 Crossmatch See Detail 08/10/17 05:29 Active Medications Generic Name Dose Route Start Last Admin Trade Name Raad PRN Reason Stop Dose Admin Chlorhexidine Gluconate 1 applic 08/10/17 22:00 Hibiclens For Decolonization - TP HS JOHNNY Dopamine HCl/Dextrose 400,000 mcg in 250 mls @ 11.482 mls/hr 08/10/17 06:15 08/10/17 06:17 Dopamine 400 Mg/D5w - IVPB 5 mcg/kg/min TITR JOHNNY 11.482 mls/hr Protocol Administration 5 MCG/KG/MIN Pantoprazole Sodium 160 mg/ 290 mls @ 14.5 mls/hr 08/10/17 08:45 Dextrose IVPB Q20H JOHNNY Mupirocin 1 applic 08/10/17 10:00 Bactroban Ointment (For Decolonization) - NS 08/15/17 09:59 BID JOHNNY ASSESSMENT/PLAN: Neuro: Pt is currently sedated --Sedation vacations as tolerated Respiratory: Acute hypoxic respiratory failure --Continues to be on AC mode vent --ABG shows 7.37/45/333 --Will titrate down from 100% FiO2 as tolerated to maintain SpO2 90-94 --CXR shows ETT 2.5cm to lea; will pull tube back 1-2cm and reimage for position --No overt infiltrative processes; low suspicion of PNA --Maintain aspiration precautions --Maintain wrist restraints while intubated for risk of self-harm Cardiovascular: Distributive shock --Continue dopamine for hemodynamic shock; wean as tolerated --monitor BP --See rest of management ID: Septic shock 2/2 to UTI --Continue dopamine as above --UA results noted --ID consult on board --Will continue Vancomycin and Aztreonam --Blood cultures x2 pending --Urine cultures pending --Pt having foul-smelling profuse diarrhea from colostomy bag --Send for C. Diff culture and stool WBCs --Rpt LA --Ofirmev PRN for fevers Hematology: Acute normocytic anemia: --On admission pt has Hgb of 6.3 --2U PRBC ordered --Rpt CBC after tranfusions --Monitor for transfusion reactions --Monitor for over signs of bleeding --Stool occult ordered FEN: Fluids: Continue to bolus as needed; NS@100cc/hr Electrolyte abnormalities: None currently Diet: NPO due to intubation PPX: DVT - SCDs placed GI - Protonix Prognosis: Very poor given advanced age, comorbid conditions, and septic shock syndrome Dispo: Will discuss GOC with next of kin and plan pending wishes Case discussed with Dr. Octavia Link, DO - IM PGY-1 Visit type - Emergency Visit Emergency Visit: No - New Patient This patient is new to me today: Yes Date on this admission: 08/10/17 - Critical Care Critical Care patient: Yes Total Critical Care Time (in minutes): 40 Critical Care Statement: The care of this patient involved high complexity decision making to prevent further life threatening deterioration of the patient 's condition and/or to evaluate & treat vital organ system(s) failure or risk of failure.
[2017-08-10] MEDS ORDERED: MUPIROCIN 2% TOPICAL OINTMENT FOR DECOLONIZATION NS SCH (10:00)
--- NOTE | 2017-08-10 10:12 | CON.ID ---
Consult Consult Specialty:: Infectious Disease Referred by:: Primary Team Reason for Consultation:: Fever, Septic Shock - History of Present Illness History of Present Illness: 86 y.o. F with pmh of mild dementia, stroke, colostomy, ovarian CA, UTI, parkinsons presented from [place]. History obtained from EMR as patient is intubated/ sedated. "Patient found laying in her bed, covered in her own feces with a fever of 103F , hypotensive, SBP 80s. As per chart and report, patient was given a laxative at [place]. She has colostomy bag, which was filled with light brown stool, no melena or BRB reported. Baseline mental status is mild dementia, as per [place], she was altered." Upon review of chart, patient appears to have vomited x1 brown. - History Source History Provided By: Medical Record Limitations to Obtaining History: Intubated - Alcohol/Substance Use Hx Alcohol Use: No - Smoking History Smoking history: Unknown if ever smoked Have you smoked in the past 12 months: No Home Medications - Allergies Allergies/Adverse Reactions: Allergies Allergy/AdvReac Type Severity Reaction Status Date / Time cefuroxime Allergy Verified 08/10/17 03:25 donepezil [From Aricept] Allergy Verified 08/10/17 03:25 meloxicam Allergy Verified 08/10/17 03:25 pregabalin Allergy Verified 08/10/17 03:25 - Home Medications Home Medications: Ambulatory Orders Acetaminophen [Tylenol -] 650 mg PO Q6H PRN 08/10/17 Amitriptyline HCl 25 mg PO HS 08/10/17 Baclofen [Lioresal -] 10 mg PO QID 08/10/17 Beta-Carotene(A)-Vits C and E [E-400 C-500 & Beta Carotene] 1 each PO DAILY 11/22 Bisacodyl Suppository [Dulcolax Suppository -] 10 mg RC HS PRN 08/10/17 Cholecalciferol (Vitamin D3) [Vitamin D3] 1,000 unit PO DAILY 08/10/17 Citalopram Hydrobromide [Celexa -] 20 mg PO HS 08/10/17 Docusate Sodium [Colace] 100 mg PO TID 08/10/17 Estradiol [Estrace] 42.5 gm VG ASDIR 08/10/17 Fesoterodine Fumarate [Toviaz] 4 mg PO DAILY 08/10/17 Gabapentin [Neurontin] 300 mg PO BID 08/10/17 Galantamine HBr [Razadyne ER] 8 mg PO DAILY 08/10/17 Heparin - 5,000 unit SQ Q12H 08/10/17 Lactobacillus Acidophilus [Acidophilus] 1 each PO BID 08/10/17 Levothyroxine [Synthroid -] 50 mcg PO DAILY 08/10/17 Linaclotide [Linzess] 290 mcg PO DAILY 08/10/17 Mag Hydrox/Al Hydrox/Simeth [Mylanta Oral Suspension -] 30 ml PO Q6H PRN Magnesium Hydrox 2400MG/30Ml [Milk of Magnesia -] 30 ml PO DAILY PRN 08/10/17 Melatonin 3 mg PO HS 08/10/17 Mirabegron [Myrbetriq] 50 mg PO DAILY 08/10/17 Multivitamins [Tab-A-Vit -] 1 tab PO DAILY 08/10/17 Daniel-3 Fatty Acids [Daniel-3] 1,000 mg PO DAILY 08/10/17 Pramipexole Di-HCl [Mirapex] 0.25 mg PO TID 08/10/17 Sennosides [Senokotxtra] 17.2 mg PO HS 08/10/17 Simethicone 80 mg PO BID PRN 08/10/17 Sodium Chloride 1,000 mg PO BID 08/10/17 Ubidecarenone [Co Q-10] 100 mg PO DAILY 08/10/17 oxyCODONE SR [Oxycontin] 10 mg PO Q12H 08/10/17 Review of Systems Unable to obtain ROS, reason: Intubated/Sedated Physical Exam Vital Signs: Vital Signs Temperature 98.2 F 08/10/17 09:13 Pulse Rate 84 08/10/17 09:13 Respiratory Rate 16 08/10/17 09:13 Blood Pressure 90/72 08/10/17 09:13 O2 Sat by Pulse Oximetry (%) 100 08/10/17 07:38 Constitutional: Yes: Other (Intubated/Sedated) HENT: Yes: Atraumatic, Normocephalic Neck: Yes: Supple, Trachea Midline Cardiovascular: Yes: Regular Rate and Rhythm, S1, S2. No: Gallop, Murmur, Rub Respiratory: Yes: CTA Bilaterally (Anteriorly) Gastrointestinal: Yes: Soft, Other (Colostmy in place filled with liquid ligth brown stool, leaking around bag. +foul odor. Significant amount of brown stool) Renal/: Yes: [place] Present (Draining dark yellow urine) Musculoskeletal: Yes: Joint Stiffness Edema: No Neurological: Yes: Other (Intubated/Sedated) Labs: CBC, BMP 08/10/17 04:11 08/10/17 07:10 Assessment/Plan Assessment: 1. Fever of unknown etiology, Sepsis 2/2 to ?Aspiration PNA, UTI, ?C. Diff 2. Acute anemia, ?GI Bleed 3. Respiratory Failure Plan: - Vancomycin 1g BID, Aztreonam 1g q8h, and Flagyl 500mg q8h [Cefuroxime allergy] - Stool for cx, wbc - F/u cx, stool c.diff, stool wbc, stool occult blood - 1 prbc given, GI/Heme on board Critical care time: 40 minutes
[2017-08-10] MEDS ORDERED: AZTREONAM 1 GM in DEXTROSE 5%-WATER - 50 ML IVPB SCH (12:15)
--- NOTE | 2017-08-10 12:15 | PN ---
Teaching Attending Note Name of Resident: Carlitos Pruitt ATTENDING PHYSICIAN STATEMENT I saw and evaluated the patient. I reviewed the resident's note and discussed the case with the resident. I agree with the resident's findings and plan as documented. 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 febrile and hypotensive in ED, also anemic (new) OBJECTIVE: Vital Signs Period Temp Pulse Resp BP Sys/Forte Pulse Ox Last 24 Hr 98.2 F-103.0 F 80-120 14-18 77-163/55-79 90-100 intubated neck supple, no nuchal rigidity cor-rrr lungs decreased bs at bases abd soft, +ostomy function- brown stool ext no edema CBC, BMP 08/10/17 04:11 08/10/17 07:10 cultures pending ASSESSMENT AND PLAN: sepsis respiratory failure ?aspiration pneumonia, ?uti, ?gastroenteritis cultures -blood, urine, stool, send cdiff too new anemia-anemia workup, transfuse, GI cefuroxime allergy vanco/azactam, flagyl for now GI to see patient over 40 minutes sent in the care of this critically ill ICU patient Problem List - Problems (1) Sepsis Code(s): A41.9 - SEPSIS, UNSPECIFIED ORGANISM (2) Respiratory failure Code(s): J96.90 - RESPIRATORY FAILURE, UNSP, UNSP W HYPOXIA OR HYPERCAPNIA (3) Anemia Code(s): D64.9 - ANEMIA, UNSPECIFIED (4) Allergy to antibiotic Code(s): Z88.1 - ALLERGY STATUS TO OTHER ANTIBIOTIC AGENTS STATUS (5) UTI (urinary tract infection) Code(s): N39.0 - URINARY TRACT INFECTION, SITE NOT SPECIFIED (6) Diarrhea Code(s): R19.7 - DIARRHEA, UNSPECIFIED (7) Aspiration pneumonia Code(s): J69.0 - PNEUMONITIS DUE TO INHALATION OF FOOD AND VOMIT
--- NOTE | 2017-08-10 13:51 | PN ---
Teaching Attending Note Name of Resident: Miguel Link ATTENDING PHYSICIAN STATEMENT I saw and evaluated the patient. I reviewed the resident's note and discussed the case with the resident. I agree with the resident's findings and plan as documented. SUBJECTIVE: Patient seen and examined in the ICU. Intubated and sedated. Dopamine infusing for hemodynamic support. AC Mode of vent. CXR: Elevated right hemidiaphragm / clear / ETT low Intake & Output 08/07/17 08/08/17 08/09/17 08/10/17 23:59 23:59 23:59 23:59 Output Total 400 Balance -400 Weight 130 lb 11.746 oz Last Vital Signs Temp Pulse Resp BP Pulse Ox 98.2 F 80 17 163/79 100 08/10/17 09:13 08/10/17 11:54 08/10/17 12:16 08/10/17 11:54 08/10/17 07:38 Active Medications Chlorhexidine Gluconate (Hibiclens For Decolonization -) 1 applic TP HS JOHNNY Dopamine HCl/Dextrose (Dopamine 400 Mg/D5w -) 400,000 mcg in 250 mls @ 11.482 mls/hr IVPB TITR JOHNNY; 5 MCG/KG/MIN PRN Reason: Protocol Last Titration: 08/10/17 12:00 Dose: 3 mcg/kg/min, 6.889 mls/hr Pantoprazole Sodium 160 mg/ (Dextrose) 290 mls @ 14.5 mls/hr IVPB Q20H JOHNNY Vancomycin HCl 1,000 mg/ (Dextrose) 250 mls @ 166.667 mls/hr IVPB BID JOHNNY PRN Reason: Protocol Aztreonam 1 gm/ Dextrose 50 mls @ 100 mls/hr IVPB Q8H-IV JOHNNY PRN Reason: Protocol Metronidazole (Flagyl 500mg Premixed Ivpb -) 500 mg in 100 mls @ 100 mls/hr IVPB Q8H-IV JOHNNY Mupirocin (Bactroban Ointment (For Decolonization) -) 1 applic NS BID JOHNNY Stop: 08/15/17 09:59 GENERAL: intubated and sedated; rotated and contracted LUNGS: anterior auscultation clear HEART: Regular rate and rhythm, normal S1 and S2 without murmur, rub or gallop. ABDOMEN: soft; with colostomy MUSCULOSKELETAL:contracted UPPER EXTREMITIES: 2+ pulses, warm, well-perfused. No cyanosis. No clubbing. No peripheral edema. LOWER EXTREMITIES: 2+ pulses, warm, well-perfused. No calf tenderness. No peripheral edema. Laboratory Results - last 24 hr 08/10/17 08/10/17 08/10/17 04:11 04:11 04:11 WBC 6.6 RBC 2.36 L Hgb 6.3 L* Hct 19.7 L MCV 83.2 MCH 26.6 MCHC 32.0 RDW 17.0 H Plt Count 238 MPV 8.2 Neutrophils % 86.7 H Lymphocytes % 5.6 L Monocytes % 7.6 Eosinophils % 0.0 Basophils % 0.1 PT with INR 17.80 H INR 1.58 H PTT (Actin FS) 42.4 H VBG pH POC VBG pCO2 POC VBG pO2 Mixed VBG HCO3 Sodium Potassium Chloride Carbon Dioxide Anion Gap BUN Creatinine Creat Clearance w eGFR Random Glucose Lactic Acid Calcium Total Bilirubin AST ALT Alkaline Phosphatase Creatine Kinase Troponin I Total Protein Albumin Urine Color Urine Appearance Urine pH Ur Specific [place] Urine Protein Urine Glucose (UA) Urine Ketones Urine Blood Urine Nitrite Urine Bilirubin Urine Urobilinogen Ur Leukocyte Esterase Urine WBC (Auto) Urine RBC (Auto) Ur Epithelial Cells Urine Bacteria Hyaline Casts Urine Mucus Blood Type O NEGATIVE Antibody Screen Negative Crossmatch See Detail 08/10/17 08/10/17 08/10/17 04:11 04:11 04:24 WBC RBC Hgb Hct MCV MCH MCHC RDW Plt Count MPV Neutrophils % Lymphocytes % Monocytes % Eosinophils % Basophils % PT with INR INR PTT (Actin FS) VBG pH 7.40 POC VBG pCO2 42.0 POC VBG pO2 51.3 H Mixed VBG HCO3 25.7 H Sodium 146 H Potassium 2.4 L* Chloride 122 H Carbon Dioxide 15 L Anion Gap 9 BUN 17 Creatinine 0.2 L Creat Clearance w eGFR > 60 Random Glucose 74 Lactic Acid 1.4 Calcium < 5.0 L* Total Bilirubin 0.3 AST 14 L ALT 12 Alkaline Phosphatase 64 Creatine Kinase 31 Troponin I 0.03 Total Protein 3.7 L Albumin 1.2 L Urine Color Urine Appearance Urine pH Ur Specific [place] Urine Protein Urine Glucose (UA) Urine Ketones Urine Blood Urine Nitrite Urine Bilirubin Urine Urobilinogen Ur Leukocyte Esterase Urine WBC (Auto) Urine RBC (Auto) Ur Epithelial Cells Urine Bacteria Hyaline Casts Urine Mucus Blood Type Antibody Screen Crossmatch 08/10/17 08/10/17 06:00 07:10 WBC RBC Hgb Hct MCV MCH MCHC RDW Plt Count MPV Neutrophils % Lymphocytes % Monocytes % Eosinophils % Basophils % PT with INR INR PTT (Actin FS) VBG pH POC VBG pCO2 POC VBG pO2 Mixed VBG HCO3 Sodium Cancelled Potassium Cancelled Chloride Cancelled Carbon Dioxide Cancelled Anion Gap Cancelled BUN Cancelled Creatinine Cancelled Creat Clearance w eGFR Random Glucose Cancelled Lactic Acid Calcium Cancelled Total Bilirubin AST ALT Alkaline Phosphatase Creatine Kinase Troponin I Total Protein Albumin Urine Color Nyla Urine Appearance Slcloudy Urine pH 5.0 Ur Specific [place] 1.021 Urine Protein Negative Urine Glucose (UA) Negative Urine Ketones Trace H Urine Blood 1+ H Urine Nitrite Negative Urine Bilirubin 2.0 Urine Urobilinogen 4.0 e.u/dl H Ur Leukocyte Esterase 1+ H Urine WBC (Auto) 16 Urine RBC (Auto) 3 Ur Epithelial Cells Rare Urine Bacteria Many Hyaline Casts 6 Urine Mucus Rare Blood Type Antibody Screen Crossmatch ASSESSMENT/PLAN: Acute Respiratory Failure Septic Shock Low clinical suspicion of PNA Dementia CVA Colostomy (?) C Diff Ovarian Ca AMS GI bleed Anemia Broad spectrum ABX Steiner-cultures sent AC Mode of vent Adjust ETT pRBCs Dopamine for hemodynamic support PPI IVF Replete lytes Will need to discuss GOC with DARA Dudley Critical care time spent in reviewing chart, evaluating patient and formulating plan - 36 minutes.
--- NOTE | 2017-08-10 14:15 | EKG ---
Test Reason : Blood Pressure : / mmHG Vent. Rate : 108 BPM Atrial Rate : 108 BPM P-R Int : 168 ms QRS Dur : 086 ms QT Int : 334 ms P-R-T Axes : 005 048 017 degrees QTc Int : 447 ms SINUS TACHYCARDIA OTHERWISE NORMAL ECG NO PREVIOUS ECGS AVAILABLE Confirmed by MD Petrona, Wil ([id number]) on 08/10/2017 2:15:14 PM Referred By: Confirmed By:Wil Russ MD
[2017-08-10] MEDS ORDERED: MORPHINE 100 MG in SODIUM CHLORIDE 98 ML IVPB SCH (14:30)
--- NOTE | 2017-08-10 14:39 | HOSP ---
Subjective - Review of Symptoms Events since last encounter: Meeting was held with the Nuns and health care proxy , as per health care proxy patient is DNR and DNI and her wishes are to be kept comfort care, patient will be comfort care, will be extubated later by the ICU team. Kerri the palliative care nurse at the meeting as well. <Benjy Perry - Last Filed: 08/10/17 17:54> Physical Examination Vital Signs: Vital Signs Temperature 98.2 F 08/10/17 09:13 Pulse Rate 80 08/10/17 11:54 Respiratory Rate 17 08/10/17 12:16 Blood Pressure 163/79 08/10/17 11:54 O2 Sat by Pulse Oximetry (%) 100 08/10/17 07:38 Labs: CBC, BMP 08/10/17 04:11 08/10/17 07:10 <Miguel Danielle - Last Filed: 08/10/17 14:32> Vital Signs: Vital Signs Temperature 98 F 08/10/17 15:23 Pulse Rate 80 08/10/17 15:23 Respiratory Rate 16 08/10/17 15:23 Blood Pressure 101/62 08/10/17 15:23 O2 Sat by Pulse Oximetry (%) 100 08/10/17 07:38 Labs: CBC, BMP 08/10/17 04:11 08/10/17 07:10 <Benjy Perry - Last Filed: 08/10/17 17:54> Hospitalist Encounter Assessment: 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 Her [facility] sisters are at bedside , one of which is the healthcare proxy. Had meeting with the Sisters, palliative care, and ICU team to discuss goals of care. Sisters described how patient would not have wanted to live intubated or on pressors. We discussed the possibility of compassionate weaning. Sisters agreed to comfort care measures only and DNR/DNI. <Miguel Danielle - Last Filed: 08/10/17 14:32> Visit type - Emergency Visit Emergency Visit: No - New Patient This patient is new to me today: Yes Date on this admission: 08/10/17 - Critical Care Critical Care patient: Yes Total Critical Care Time (in minutes): 35 Critical Care Statement: The care of this patient involved high complexity decision making to prevent further life threatening deterioration of the patient 's condition and/or to evaluate & treat vital organ system(s) failure or risk of failure. <Miguel Danielle - Last Filed: 08/10/17 14:32>
[2017-08-10] MEDS ORDERED: morphine CARPU-JECT 4 MG/1 ML DISP.SYRIN IVPUSH ONE (15:27)
[2017-08-10] MEDS ORDERED: MORPHINE SULFATE 10 MG/1 ML *VIAL IVPUSH ONE (15:27)
[2017-08-10] MEDS ORDERED: morphine SULFATE 4 MG/ML VIAL ONE (15:29)
--- NOTE | 2017-08-10 15:44 | CON.GI ---
Consult Consult Specialty:: GI Reason for Consultation:: R/O GI Bleed - History of Present Illness History of Present Illness: 86 year old female with multiple PMH including dementia, stroke, ovarian cancer was transferred from the assisted because of coffee ground vomitus and altered mental status. She was febrile to 103F and was noted to be hypotensive, she was intubated because of respiratory failure. Patient had Ostomy in place, stoma pink and mcneil loose stool noted in ostomy bag. Patient responsive to painful stimuli only. After consulting the HCP it was decided supportive management only and the patient was extubated. - History Source History Provided By: Friend, Medical Record Limitations to Obtaining History: Intubated - Past Medical History ...: No Musculoskeletal: Yes: Other (complete care) - Alcohol/Substance Use Hx Alcohol Use: No - Smoking History Smoking history: Unknown if ever smoked Have you smoked in the past 12 months: No Home Medications - Allergies Allergies/Adverse Reactions: Allergies Allergy/AdvReac Type Severity Reaction Status Date / Time cefuroxime Allergy Verified 08/10/17 03:25 donepezil [From Aricept] Allergy Verified 08/10/17 03:25 meloxicam Allergy Verified 08/10/17 03:25 pregabalin Allergy Verified 08/10/17 03:25 - Home Medications Home Medications: Ambulatory Orders Acetaminophen [Tylenol -] 650 mg PO Q6H PRN 08/10/17 Amitriptyline HCl 25 mg PO HS 08/10/17 Baclofen [Lioresal -] 10 mg PO QID 08/10/17 Beta-Carotene(A)-Vits C and E [E-400 C-500 & Beta Carotene] 1 each PO DAILY 11/22 Bisacodyl Suppository [Dulcolax Suppository -] 10 mg RC HS PRN 08/10/17 Cholecalciferol (Vitamin D3) [Vitamin D3] 1,000 unit PO DAILY 08/10/17 Citalopram Hydrobromide [Celexa -] 20 mg PO HS 08/10/17 Docusate Sodium [Colace] 100 mg PO TID 08/10/17 Estradiol [Estrace] 42.5 gm VG ASDIR 08/10/17 Fesoterodine Fumarate [Toviaz] 4 mg PO DAILY 08/10/17 Gabapentin [Neurontin] 300 mg PO BID 08/10/17 Galantamine HBr [Razadyne ER] 8 mg PO DAILY 08/10/17 Heparin - 5,000 unit SQ Q12H 08/10/17 Lactobacillus Acidophilus [Acidophilus] 1 each PO BID 08/10/17 Levothyroxine [Synthroid -] 50 mcg PO DAILY 08/10/17 Linaclotide [Linzess] 290 mcg PO DAILY 08/10/17 Mag Hydrox/Al Hydrox/Simeth [Mylanta Oral Suspension -] 30 ml PO Q6H PRN Magnesium Hydrox 2400MG/30Ml [Milk of Magnesia -] 30 ml PO DAILY PRN 08/10/17 Melatonin 3 mg PO HS 08/10/17 Mirabegron [Myrbetriq] 50 mg PO DAILY 08/10/17 Multivitamins [Tab-A-Vit -] 1 tab PO DAILY 08/10/17 [place]-3 Fatty Acids [[place]-3] 1,000 mg PO DAILY 08/10/17 Pramipexole Di-HCl [Mirapex] 0.25 mg PO TID 08/10/17 Sennosides [Senokotxtra] 17.2 mg PO HS 08/10/17 Simethicone 80 mg PO BID PRN 08/10/17 Sodium Chloride 1,000 mg PO BID 08/10/17 Ubidecarenone [Co Q-10] 100 mg PO DAILY 08/10/17 oxyCODONE SR [Oxycontin] 10 mg PO Q12H 08/10/17 Review of Systems - Review of Systems Constitutional: reports: Other (Patient responsive to painful stimuli only- unable to assess) Physical Exam-GI Vital Signs: Vital Signs Temperature 98 F 08/10/17 15:23 Pulse Rate 80 08/10/17 15:23 Respiratory Rate 16 08/10/17 15:23 Blood Pressure 101/62 08/10/17 15:23 O2 Sat by Pulse Oximetry (%) 100 08/10/17 07:38 Constitutional: No: No Distress Eyes: No: Conjunctiva Clear HENT: Yes: Other (intubated) Cardiovascular: Yes: Regular Rate and Rhythm Respiratory: Yes: Other (Ventilated) ...Auscultate: Yes: Normoactive Bowel Sounds ...Palpate: Yes: Soft, Other (Ostomy in place). No: Firm/Rigid Labs: CBC, BMP 08/10/17 04:11 08/10/17 07:10 INR, PTT INR 1.58 (0.82-1.09) H 08/10/17 04:11 Problem List - Problems (1) Altered bowel elimination due to intestinal ostomy Assessment/Plan: Recommendation 1) continue Stoma care 2) continue ostomy care. Code(s): K94.19 - OTHER COMPLICATIONS OF ENTEROSTOMY (2) Septic shock Code(s): A41.9 - SEPSIS, UNSPECIFIED ORGANISM; R65.21 - SEVERE SEPSIS WITH SEPTIC SHOCK (3) Anemia Assessment/Plan: R/O GI Bleed Recommendation: 1)continue supportive care at this time because patient is DNR/DNI at this time 2) consider IV protonix 40mg ivbp Code(s): D64.9 - ANEMIA, UNSPECIFIED
[2017-08-10] MEDS: ACETAMINOPHEN 650 MG SUPP.RECT PR PRN ×2 (17:49→22:35)
[2017-08-10] MEDS ORDERED: CHLORHEXIDINE GLUCONATE 4% CLEANSER FOR DECOLONIZATION TP SCH (22:00)
[2017-08-10] MEDS ORDERED: VANCOMYCIN 1,000 MG in DEXTROSE 5%-WATER - 250 ML IVPB SCH (22:00)
--- NOTE | 2017-08-11 07:10 | PN ---
Progress Note, Physician Chief Complaint: ID Preceding notes reviewed re comfort care measures T max 102-103 - Current Medication List Current Medications: Active Medications Acetaminophen (Tylenol Suppository -) 650 mg DC Q4H PRN PRN Reason: FEVER Last Admin: 08/10/17 22:35 Dose: 650 mg Morphine Sulfate 100 mg/ (Sodium Chloride) 100 mls @ 1 mls/hr IVPB TITR JOHNNY; 1 MG/HR PRN Reason: Protocol Last Titration: 08/11/17 00:00 Dose: 4 mg/hr, 4 mls/hr - Objective Vital Signs: Vital Signs Temperature 99.8 F H 08/11/17 02:00 Pulse Rate 92 H 08/11/17 06:00 Respiratory Rate 16 08/11/17 06:00 Blood Pressure 69/40 08/11/17 06:00 O2 Sat by Pulse Oximetry (%) 100 08/10/17 07:38 Constitutional: Yes: Ashen Cardiovascular: Yes: S1, S2. No: Murmur Respiratory: Yes: WNL, Regular, CTA Bilaterally, Diminished Gastrointestinal: Yes: Soft, Other (Ostomy). No: Tenderness Edema: No Labs: CBC, BMP 08/10/17 04:11 08/10/17 07:10 INR, PTT INR 1.58 (0.82-1.09) H 08/10/17 04:11 Assessment/Plan Microbiology 08/10/17 11:00 Stool Clostridium difficile Antigen (ADRIÁN) - Final 08/10/17 11:00 Stool Clostridium difficile Toxin Assay - Final 08/10/17 04:11 Blood - Peripheral Venous Blood Culture - Preliminary NO GROWTH OBTAINED AFTER 24 HOURS, INCUBATION TO CONTINUE FOR 4 DAYS. Laboratory Tests 08/10/17 08/10/17 08/10/17 04:11 04:11 06:00 WBC 6.6 Plt Count 238 INR 1.58 H BUN Creatinine Lactic Acid Ur Leukocyte Esterase 1+ H Urine WBC (Auto) 16 Urine RBC (Auto) 3 08/10/17 08/10/17 07:10 11:35 WBC Plt Count INR BUN 27 H Creatinine 0.8 Lactic Acid 5.1 H* Ur Leukocyte Esterase Urine WBC (Auto) Urine RBC (Auto) Assessment Sepsis syndrome source unclear Severe anemia Blood culture so far 1 bottle positive GPC preliminary Respiratory failure C diff Antigen pos toxin negative Plan A this point antibiotics have been discontinued I assume in line with patient wishes Comfort care measures Cecilia MD
[2017-08-11] MEDS ORDERED: DEXTROSE 5%-NORMAL SALINE 1,000 ML IV SCH ×2 (10:30→10:49)
[2017-08-11] MEDS ORDERED: VANCOMYCIN 1,000 MG in DEXTROSE 5%-WATER - 250 ML IVPB SCH (10:45)
[2017-08-11] MEDS ORDERED: morphine SULFATE 4 MG/ML VIAL IVPUSH PRN (10:47)
[2017-08-11] MEDS ORDERED: AZTREONAM 1 GRAM SYRINGE 1 GM/10 ML DISP.SYRIN IVPUSH SCH ×2 (11:00→18:00)
[2017-08-11 11:57] LABS: ALBUMIN 2.1 g/dl (3.4-5.0); ANION GAP 6 (8-16); BILIRUBIN,TOTAL 0.5 mg/dL (0.2-1.0); BLOOD UREA NITROGEN 39 mg/dL (7-18); CALCIUM 8.3 mg/dL (8.5-10.1); CHLORIDE 107 mmol/L (98-107); CO2 24 mmol/L (21-32); GLUCOSE,RANDOM 89 mg/dL (74-106); MAGNESIUM 2.7 mg/dL (1.8-2.4); PHOSPHOROUS 2.7 mg/dL (2.5-4.9); POTASSIUM 4.1 mmol/L (3.5-5.1); SGOT/AST 29 U/L (15-37); SGPT/ALT 17 U/L (12-78); SODIUM 137 mmol/L (136-145); TOT PROT 6.6 g/dl (6.4-8.2)
[2017-08-11 11:58] LABS: ALK PHOS 86 U/L (45-117)
[2017-08-11 12:04] LABS: HEMATOCRIT 31.2 % (32.4-45.2); HEMOGLOBIN 10.5 GM/dL (10.7-15.3); MCH 27.2 pg (25.7-33.7); MCHC 33.5 g/dl (32.0-36.0); MEAN CELL VOLUME 81.2 fl (80-96); MEAN PLT VOLUME 8.1 fl (7.5-11.1); PLATELET COUNT 267 K/MM3 (134-434); RBC 3.84 M/mm3 (3.60-5.2); RDW 17.3 % (11.6-15.6); WHITE BLOOD COUNT 8.7 K/mm3 (4.0-10.0)
--- NOTE | 2017-08-11 12:16 | PN ---
Teaching Attending Note Name of Resident: Miguel Link ATTENDING PHYSICIAN STATEMENT I saw and evaluated the patient. I reviewed the resident's note and discussed the case with the resident. I agree with the resident's findings and plan as documented. SUBJECTIVE: Patient seen and examined in the ICU. Extubated. Awake and alert and interactive. No pressors. Events and decisions from yesterday noted. Intake & Output 08/08/17 08/09/17 08/10/17 08/11/17 23:59 23:59 23:59 23:59 Intake Total 79 28 Output Total 950 200 Balance -871 -172 Weight 130 lb 11.746 oz Last Vital Signs Temp Pulse Resp BP Pulse Ox 99.8 F H 99 H 16 98/58 100 08/11/17 02:00 08/11/17 11:00 08/11/17 11:00 08/11/17 11:00 08/10/17 07:38 Active Medications Acetaminophen (Tylenol Suppository -) 650 mg [place] Q4H PRN PRN Reason: FEVER Last Admin: 08/10/17 22:35 Dose: 650 mg Aztreonam 1 gm/ Dextrose 50 mls @ 100 mls/hr IVPB Q8H-IV JOHNNY PRN Reason: Protocol Metronidazole (Flagyl 500mg Premixed Ivpb -) 500 mg in 100 mls @ 100 mls/hr IVPB Q8H-IV JOHNNY Stop: 08/12/17 10:14 Last Admin: 08/11/17 10:43 Dose: 100 mls/hr Vancomycin HCl 1,000 mg/ (Dextrose) 250 mls @ 250 mls/hr IVPB BID JOHNNY PRN Reason: Protocol Stop: 08/12/17 10:44 Last Admin: 08/11/17 12:12 Dose: 250 mls/hr Aztreonam (Azactam (Restricted To Id) -) 1 gm in 10 mls @ 120 mls/hr IVPUSH Q8H -IV JOHNNY Stop: 08/11/17 15:00 Last Admin: 08/11/17 12:12 Dose: 120 mls/hr Dextrose/Sodium Chloride (D5-Ns -) 1,000 mls @ 100 mls/hr IV ASDIR JOHNNY Last Admin: 08/11/17 10:45 Dose: 100 mls/hr Morphine Sulfate (Morphine Sulfate) 4 mg IVPUSH Q4H PRN PRN Reason: PAIN LEVEL 6-10 GENERAL: extubated, Awake and alert LUNGS: clear HEART: Regular rate and rhythm, normal S1 and S2 without murmur, rub or gallop. ABDOMEN: soft; with colostomy MUSCULOSKELETAL:contracted UPPER EXTREMITIES: 2+ pulses, warm, well-perfused. No cyanosis. No clubbing. No peripheral edema. LOWER EXTREMITIES: 2+ pulses, warm, well-perfused. No calf tenderness. No peripheral edema. Laboratory Results - last 24 hr 08/10/17 08/10/17 08/11/17 08:20 11:35 11:13 WBC 8.7 D RBC 3.84 D Hgb 10.5 L D Hct 31.2 L D MCV 81.2 MCH 27.2 MCHC 33.5 RDW 17.3 H Plt Count 267 MPV 8.1 Puncture Site No Result Required. Sodium Potassium Chloride Carbon Dioxide Anion Gap BUN Creatinine Creat Clearance w eGFR Random Glucose Lactic Acid 5.1 H* Calcium Phosphorus Magnesium Total Bilirubin AST ALT Alkaline Phosphatase Total Protein Albumin 08/11/17 08/11/17 11:13 11:13 WBC RBC Hgb Hct MCV MCH MCHC RDW Plt Count MPV Puncture Site Sodium 137 Potassium 4.1 Chloride 107 Carbon Dioxide 24 Anion Gap 6 L BUN 39 H Creatinine 1.0 Creat Clearance w eGFR 52.57 Random Glucose 89 Lactic Acid 0.9 Calcium 8.3 L Phosphorus 2.7 Magnesium 2.7 H Total Bilirubin 0.5 D AST 29 ALT 17 Alkaline Phosphatase 86 Total Protein 6.6 Albumin 2.1 L ASSESSMENT/PLAN: Acute Respiratory Failure Septic Shock Low clinical suspicion of PNA Dementia CVA Colostomy C Diff Antigen (+) Ovarian Ca AMS GI bleed Anemia Continue ABX per ID Follow final cultures O2 to maintain saturation Normal transfusion thresholds Aspiration precautions VTE / GI Prophylaxis Floor DNR/DNI Dr Dudley Critical care time spent in reviewing chart, evaluating patient and formulating plan - 36 minutes.
--- NOTE | 2017-08-11 15:11 | PN ---
Physical Exam: SUBJECTIVE: OVN patient improved. She was previously on comfort care but has since been transitioned to DNR/DNI and treatment with antibiotics has resumed. Patient is in no pain. OBJECTIVE: Vital Signs Period Temp Pulse Resp BP Sys/Forte Pulse Ox Last 24 Hr 98 F-102 F 80-106 12-16 54-102/33-66 GENERAL: Alert but not oriented CARDS: Tachycardic, no murmurs noted PULM: coarse breath sounds b/l ABD: soft, nontender, colostomy bag in place EXTREMITIES: 1+ edema b/l, 2+ pulses Laboratory Results - last 24 hr 08/10/17 08/11/17 08/11/17 08:20 11:13 11:13 WBC 8.7 D RBC 3.84 D Hgb 10.5 L D Hct 31.2 L D MCV 81.2 MCH 27.2 MCHC 33.5 RDW 17.3 H Plt Count 267 MPV 8.1 Puncture Site No Result Required. Sodium 137 Potassium 4.1 Chloride 107 Carbon Dioxide 24 Anion Gap 6 L BUN 39 H Creatinine 1.0 Creat Clearance w eGFR 52.57 Random Glucose 89 Lactic Acid Calcium 8.3 L Phosphorus 2.7 Magnesium 2.7 H Total Bilirubin 0.5 D AST 29 ALT 17 Alkaline Phosphatase 86 Total Protein 6.6 Albumin 2.1 L 08/11/17 11:13 WBC RBC Hgb Hct MCV MCH MCHC RDW Plt Count MPV Puncture Site Sodium Potassium Chloride Carbon Dioxide Anion Gap BUN Creatinine Creat Clearance w eGFR Random Glucose Lactic Acid 0.9 Calcium Phosphorus Magnesium Total Bilirubin AST ALT Alkaline Phosphatase Total Protein Albumin Active Medications Generic Name Dose Route Start Last Admin Trade Name Raad PRN Reason Stop Dose Admin Acetaminophen 650 mg 08/10/17 17:22 08/10/17 22:35 Tylenol Suppository - CA 650 mg Q4H PRN Administration FEVER Aztreonam 1 gm/ Dextrose 50 mls @ 100 mls/hr 08/11/17 18:00 IVPB Q8H-IV JOHNNY Protocol Metronidazole 500 mg in 100 mls @ 100 mls/hr 08/11/17 10:15 08/11/17 10:43 Flagyl 500mg Premixed Ivpb - IVPB 08/12/17 10:14 100 mls/hr Q8H-IV JOHNNY Administration Vancomycin HCl 1,000 mg/ 250 mls @ 250 mls/hr 08/11/17 10:45 08/11/17 12:12 Dextrose IVPB 08/12/17 10:44 250 mls/hr BID JOHNNY Administration Protocol Dextrose/Sodium Chloride 1,000 mls @ 100 mls/hr 08/11/17 10:49 08/11/17 10:45 D5-Ns - IV 100 mls/hr ASDIR JOHNNY Administration Morphine Sulfate 4 mg 08/11/17 10:47 Morphine Sulfate IVPUSH Q4H PRN PAIN LEVEL 6-10 CBC, BMP 08/11/17 11:13 08/11/17 11:13 ASSESSMENT/PLAN: 86 year old female with a past medical history of dementia, stroke, 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), ovarian CA, UTIs, admitted for shock secondary to unknown etiology #Shock: possibly septic vs acute blood loss, resolving -patient is off comfort care measures, keeping DNR/DNI -restart vancomycin, flagyl, aztreonam -ID consult appreciated -s/p 1U PRBC -monitor H&H, BP -GI consult appreciated #Hypokalemia: resolved -monitor in AM #Hypocalcemia: resolved #FEN: -D5NS @ 100cc/hr -dysphagia puree diet -replete lytes in AM #Prophylaxis -SCDs due to possible bleed Disposition: -may transfer to floor Visit type - Emergency Visit Emergency Visit: No - New Patient This patient is new to me today: No - Critical Care Critical Care patient: No
[2017-08-11] MEDS ORDERED: ACETAMINOPHEN 650 MG SUPP.RECT PR PRN (15:46)
[2017-08-11] MEDS ORDERED: PT OWN MED DRAWER 7, Y5N ONE (17:19)
[2017-08-11] MEDS ORDERED: AZTREONAM 1 GM in DEXTROSE 5%-WATER - 50 ML IVPB SCH (18:00)
[2017-08-11] MEDS: AZTREONAM 1 GM in DEXTROSE 5%-WATER - 50 ML IVPB SCH (18:00)
[2017-08-11] MEDS: DEXTROSE 5%-NORMAL SALINE 1,000 ML IV SCH (18:01)
[2017-08-11] MEDS ORDERED: CITALOPRAM HYDROBROMIDE 20 MG TABLET (FP) PO ONE ×2 (19:00→22:00)
--- NOTE | 2017-08-11 19:01 | PN ---
Teaching Attending Note Name of Resident: Miguel Danielle ATTENDING PHYSICIAN STATEMENT I saw and evaluated the patient. I reviewed the resident's note and discussed the case with the resident. I agree with the resident's findings and plan as documented. SUBJECTIVE: no fever or chills , has no abd pain. overnight , pt was extubated OBJECTIVE: NAD , awake, dy MM, tacycardic, minimal verba response. cooperative CV: RRR, no JVD Lungs: poor inspiratory effort , hard to assess Abd: soft, NT , LLQ colostomy bag wth liquid brown stool Ext: no edema skin: stage 1 on saccral area ASSESSMENT AND PLAN: 86 y/o lady with multiple medical problems who presented from [place] and was found to have shock . was made comfort measures, extubated but then family decided to revise code status to DNR/DNI 1- Shock : possibly septic. resolved now . unlikely hypovolemic from acute blood loss - blood c x and urine cx noted - started on aztreonam /vanco and IV flagyl - follwo blood cx - IVF 2- possible GI bleed . OB neg. 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 iron studies not done before transfusion possible GI loss vs anemia of chronic dz obtain iron studies .b12/folate dispo : HLOC puree diet pending official eval
--- NOTE | 2017-08-11 19:27 | PN ---
Physical Exam: SUBJECTIVE: Pt previously made comfort care with passionate extubation yesterday by HCP Sister Mary Grace. Overnight pt began to regain some mentation while only on Morphine gtt and was asking her cousin for food and her slippers. This morning pt was awake and alert laughing with her cousin, responding to commands and had no problems carrying on a conversation. Pt denies any pain, SOB , CP/discomfort and was thankful for her care. Call was placed to Sister Mary Grace HCP to update on current status of patient. It was discussed with the patient and Sister Mary Grace on separate occassions if they wanted to medically treat with antibiotics now that cultures were positive for bacteremia and lactose fermenting gram negatives in the urine. Both agreed that antibiotics and medical management would be okay, but they both agreed that the DNR/DNI status would remain. OBJECTIVE: Vital Signs Period Temp Pulse Resp BP Sys/Forte Pulse Ox Last 24 Hr 98.5 F-99.8 F 85-104 16-18 54-119/33-62 GENERAL: NAD, awake, alert, oriented x3 HEENT: NC/AT, EOMI, BETHEL, Sclera anicteric, No JVD, dry mucosa LUNGS: CTA bilaterally, no wheezes, no crackles, no accessory muscle use. HEART: RRR, S1, S2 without murmur appreciated ABDOMEN: Soft, nontender, nondistended, normoactive bowel sounds, no guarding, no hepatomegaly EXTREMITIES: 2+ DP pulses, warm, well-perfused, no edema. NEUROLOGICAL: Nonfocal. 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 Sensation intact bilaterally throughout. Normal speech, gait not observed. PSYCH: Normal mood, normal affect, jovial SKIN: Warm, dry, normal turgor, no rashes or lesions noted Laboratory Results - last 24 hr 08/10/17 08/11/17 08/11/17 08:20 11:13 11:13 WBC 8.7 D RBC 3.84 D Hgb 10.5 L D Hct 31.2 L D MCV 81.2 MCH 27.2 MCHC 33.5 RDW 17.3 H Plt Count 267 MPV 8.1 Puncture Site No Result Required. Sodium 137 Potassium 4.1 Chloride 107 Carbon Dioxide 24 Anion Gap 6 L BUN 39 H Creatinine 1.0 Creat Clearance w eGFR 52.57 Random Glucose 89 Lactic Acid Calcium 8.3 L Phosphorus 2.7 Magnesium 2.7 H Total Bilirubin 0.5 D AST 29 ALT 17 Alkaline Phosphatase 86 Total Protein 6.6 Albumin 2.1 L 08/11/17 11:13 WBC RBC Hgb Hct MCV MCH MCHC RDW Plt Count MPV Puncture Site Sodium Potassium Chloride Carbon Dioxide Anion Gap BUN Creatinine Creat Clearance w eGFR Random Glucose Lactic Acid 0.9 Calcium Phosphorus Magnesium Total Bilirubin AST ALT Alkaline Phosphatase Total Protein Albumin Active Medications Generic Name Dose Route Start Last Admin Trade Name Freq PRN Reason Stop Dose Admin Acetaminophen 650 mg 08/11/17 15:46 Tylenol Suppository - [place] Q4H PRN FEVER Citalopram Hydrobromide 20 mg 08/12/17 10:00 Celexa - PO DAILY JOHNNY Dextrose/Sodium Chloride 1,000 mls @ 100 mls/hr 08/11/17 15:46 08/11/17 18:01 D5-Ns - IV Not Given ASDIR JOHNNY Metronidazole 500 mg in 100 mls @ 100 mls/hr 08/11/17 18:00 08/11/17 18:01 Flagyl 500mg Premixed Ivpb - IVPB 08/12/17 10:14 100 mls/hr Q8H-IV JOHNNY Administration Vancomycin HCl 1,000 mg/ 250 mls @ 166.667 mls/hr 08/11/17 22:00 Dextrose IVPB 08/12/17 10:44 BID JOHNNY Protocol Aztreonam 1 gm/ Dextrose 50 mls @ 100 mls/hr 08/11/17 18:00 08/11/17 18:00 IVPB 100 mls/hr Q8H-IV JOHNNY Administration Protocol Morphine Sulfate 4 mg 08/11/17 15:46 Morphine Sulfate IVPUSH Q4H PRN PAIN LEVEL 6-10 ASSESSMENT/PLAN: Neuro: Pt mentation improved markedly. Monitor for signs of deterioration Respiratory: Acute hypoxic respiratory failure --Extubated yesterday and with SpO2 of 95% on 4LNC --Titrate down as possible --Stat CXR ordered --Stat CBC, CMP, Mg, Phos ordered --Maintain aspiration precautions Cardiovascular: Distributive shock --IMPROVED --Pt remains off pressors currently with stable BP --Continue to monitor BP ID: Septic shock 2/2 to UTI --Shock state resolving --Off pressors currently; not intubated --ID reconsulted --Penicillin allergic with severe reaction with high risk of cephalosporin cross-reactivity --Blood cultures positive for streptococcus --Urine culture positive for lactose fermenting gram negative bacilli --F/u as finalized --Pt to reinitiate Vancomycin 1gm BID, Aztreonam 1gm, and Flagyl 500mg IV --Monitor WBC --Ofirmev PRN for fevers Hematology: Acute normocytic anemia: --On admission pt has Hgb of 6.3 --s/p 1UPRBC --Stat CBC to see Hgb level --Transfusion level <7 --Monitor for overt signs of bleeding FEN: Fluids: D5-1/2NS@100cc/hr; may change once lab results are in Electrolyte abnormalities: Pending labs Diet: Dysphagia puree diet with honey-thick liquids PPX: DVT - SCDs on board Prognosis: Guarded despite improvement in the past day Dispo: GOC as per HPI, no central lines or pressors to be reinitiated (only medical treatment); transfer to / Case discussed with Dr. Octavia Link, DO - IM PGY-1 Visit type - Emergency Visit Emergency Visit: No - New Patient This patient is new to me today: No - Critical Care Critical Care patient: No
[2017-08-11] MEDS: VANCOMYCIN 1,000 MG in DEXTROSE 5%-WATER - 250 ML IVPB SCH (21:47)
[2017-08-12] MEDS ORDERED: ACETAMINOPHEN 325 MG TABLET (FP) PO ONE (01:23)
[2017-08-12] MEDS: AZTREONAM 1 GM in DEXTROSE 5%-WATER - 50 ML IVPB SCH ×3 (01:29→17:15)
[2017-08-12] MEDS: morphine SULFATE 4 MG/ML VIAL IVPUSH PRN (02:30)
[2017-08-12 07:51] LABS: HEMATOCRIT 30.3 % (32.4-45.2); MCH 27.1 pg (25.7-33.7); MCHC 33.1 g/dl (32.0-36.0); MEAN CELL VOLUME 81.9 fl (80-96); MEAN PLT VOLUME 8.1 fl (7.5-11.1); PLATELET COUNT 248 K/MM3 (134-434); RDW 17.1 % (11.6-15.6); WHITE BLOOD COUNT 7.3 K/mm3 (4.0-10.0)
[2017-08-12 08:16] LABS: ANION GAP 8 (8-16); BLOOD UREA NITROGEN 24 mg/dL (7-18); CALCIUM 8.4 mg/dL (8.5-10.1); CHLORIDE 106 mmol/L (98-107); CO2 24 mmol/L (21-32); CREATININE 0.4 mg/dL (0.55-1.02); GLUCOSE,RANDOM 115 mg/dL (74-106); MAGNESIUM 2.3 mg/dL (1.8-2.4); PHOSPHOROUS 1.3 mg/dL (2.5-4.9); POTASSIUM 3.6 mmol/L (3.5-5.1); SODIUM 138 mmol/L (136-145)
[2017-08-12] MEDS: DEXTROSE 5%-NORMAL SALINE 1,000 ML IV SCH ×2 (10:07→17:19)
[2017-08-12] MEDS: CITALOPRAM HYDROBROMIDE 20 MG TABLET (FP) PO SCH (10:09)
[2017-08-12] MEDS ORDERED: SIMETHICONE 80 MG TAB.CHEW (FP) PO PRN (10:13)
[2017-08-12] MEDS: VANCOMYCIN 1,000 MG in DEXTROSE 5%-WATER - 250 ML IVPB SCH (10:15)
[2017-08-12] MEDS ORDERED: POTASSIUM CHLORIDE TABS 20 MEQ TABLET.ER (FP) PO ONE (12:00)
--- NOTE | 2017-08-12 13:05 | PN ---
Physical Exam: SUBJECTIVE: Patient seen and examined. Patient is complaining of pain all over her body but does not appear to be in pain. Overnight patient refused oral medications and has been afebrile. OBJECTIVE: Vital Signs Period Temp Pulse Resp BP Sys/Forte Pulse Ox Last 24 Hr 98.5 F-99.4 F 95-99 16-20 95-119/50-62 99 GENERAL: Alert but not oriented CARDS: Tachycardic, no murmurs noted PULM: coarse breath sounds b/l ABD: soft, nontender, colostomy bag in place with soft brown stool emanating EXTREMITIES: 1+ edema b/l, 2+ pulses Laboratory Results - last 24 hr 08/11/17 08/12/17 08/12/17 11:13 06:45 06:45 WBC 7.3 RBC 3.70 Hgb 10.0 L Hct 30.3 L MCV 81.9 MCH 27.1 MCHC 33.1 RDW 17.1 H Plt Count 248 MPV 8.1 Sodium 137 Potassium 4.1 Chloride 107 Carbon Dioxide 24 Anion Gap 6 L BUN 39 H Creatinine 1.0 Creat Clearance w eGFR 52.57 Random Glucose 89 Calcium 8.3 L Phosphorus 2.7 Magnesium 2.7 H Ferritin 95.151 Total Bilirubin 0.5 D AST 29 ALT 17 Alkaline Phosphatase 86 Total Protein 6.6 Albumin 2.1 L Vitamin B12 779 Serum Folate 19 H Random Vancomycin 11.899 08/12/17 06:45 WBC RBC Hgb Hct MCV MCH MCHC RDW Plt Count MPV Sodium 138 Potassium 3.6 Chloride 106 Carbon Dioxide 24 Anion Gap 8 BUN 24 H Creatinine 0.4 L Creat Clearance w eGFR Random Glucose 115 H Calcium 8.4 L Phosphorus 1.3 L Magnesium 2.3 Ferritin Total Bilirubin AST ALT Alkaline Phosphatase Total Protein Albumin Vitamin B12 Serum Folate Random Vancomycin Active Medications Generic Name Dose Route Start Last Admin Trade Name Freq PRN Reason Stop Dose Admin Acetaminophen 650 mg 08/11/17 15:46 Tylenol Suppository - [place] Q4H PRN FEVER Citalopram Hydrobromide 20 mg 08/12/17 10:00 08/12/17 10:09 Celexa - PO Not Given DAILY JOHNNY Dextrose/Sodium Chloride 1,000 mls @ 100 mls/hr 08/11/17 15:46 08/12/17 10:07 D5-Ns - IV 100 mls/hr ASDIR JOHNNY Administration Aztreonam 1 gm/ Dextrose 50 mls @ 100 mls/hr 08/11/17 18:00 08/12/17 01:29 IVPB 100 mls/hr Q8H-IV JOHNNY Administration Protocol Levothyroxine Sodium 50 mcg 08/12/17 12:00 Synthroid - PO DAILY@0700 JOHNNY Melatonin 3 mg 08/12/17 22:00 Melatonin PO HS JOHNNY Morphine Sulfate 4 mg 08/11/17 15:46 08/12/17 02:30 Morphine Sulfate IVPUSH 4 mg Q4H PRN Administration PAIN LEVEL 6-10 Non-Formulary Medication 50 mg 08/13/17 10:00 Mirabegron [Myrbetriq] PO DAILY JOHNNY Liyht-3-Eysp Ethyl Esters 1,000 gm 08/13/17 10:00 Lovaza - PO DAILY JOHNNY Pramipexole Dihydrochloride 0.25 mg 08/12/17 14:00 Mirapex - PO TID JOHNNY Senna 2 tab 08/12/17 22:00 Senna - PO HS JOHNNY Simethicone 80 mg 08/12/17 10:13 Mylicon - PO BID PRN DYSPEPSIA ASSESSMENT/PLAN: 86 year old female with a past medical history of dementia, stroke, 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 Conway consult appreciated #Delerium: likely 2/2 sepsis -CT head negative for acute intracranial pathology -Will do duplex US for DVTs #Urinary Retention: patient has pearson now -DC pearson in AM and void trial #Hypokalemia: resolved -monitor in AM #Hypocalcemia: resolved #FEN: -D5NS @ 100cc/hr -dysphagia puree diet -replete lytes in AM #Prophylaxis -SCDs due to possible bleed Disposition: -continue to monitor on med-surg Visit type - Emergency Visit Emergency Visit: No - New Patient This patient is new to me today: No - Critical Care Critical Care patient: No
[2017-08-12] MEDS ORDERED: ACETAMINOPHEN 1000 MG/100 ML VIAL (NON FORMULARY) IVPB PRN (14:16)
--- NOTE | 2017-08-12 14:26 | PN ---
Progress Note, Physician History of Present Illness: Awake but confused Offers no complaints Temps down Afebrile BC+ VRE Urine c/s Klebsiella sp. - Current Medication List Current Medications: Active Medications Acetaminophen (Tylenol Suppository -) 650 mg ND Q4H PRN PRN Reason: FEVER Acetaminophen (Ofirmev Injection -) 1,000 mg IVPB Q6H PRN PRN Reason: PAIN Citalopram Hydrobromide (Celexa -) 20 mg PO DAILY [facility] Last Admin: 08/12/17 10:09 Dose: Not Given Dextrose/Sodium Chloride (D5-Ns -) 1,000 mls @ 100 mls/hr IV ASDIR [facility] Last Admin: 08/12/17 10:07 Dose: 100 mls/hr Aztreonam 1 gm/ Dextrose 50 mls @ 100 mls/hr IVPB Q8H-IV JOHNNY PRN Reason: Protocol Last Admin: 08/12/17 01:29 Dose: 100 mls/hr Levothyroxine Sodium (Synthroid -) 50 mcg PO DAILY@0700 [facility] Melatonin (Melatonin) 3 mg PO HS [facility] Morphine Sulfate (Morphine Sulfate) 4 mg IVPUSH Q4H PRN PRN Reason: PAIN LEVEL 6-10 Last Admin: 08/12/17 02:30 Dose: 4 mg Non-Formulary Medication (Mirabegron [Myrbetriq]) 50 mg PO DAILY [facility] Qhbul-0-Kzjr Ethyl Esters (Lovaza -) 1,000 gm PO DAILY [facility] Pramipexole Dihydrochloride (Mirapex -) 0.25 mg PO TID [facility] Senna (Senna -) 2 tab PO HS [facility] Simethicone (Mylicon -) 80 mg PO BID PRN PRN Reason: DYSPEPSIA - Objective Vital Signs: Vital Signs Temperature 98.6 F 08/12/17 05:44 Pulse Rate 99 H 08/12/17 05:44 Respiratory Rate 20 08/12/17 05:44 Blood Pressure 116/60 08/12/17 05:44 O2 Sat by Pulse Oximetry (%) 99 08/11/17 21:00 Constitutional: Yes: Cachectic, Pallor Cardiovascular: Yes: Regular Rate and Rhythm, S1, S2 Respiratory: Yes: Diminished Gastrointestinal: Yes: Normal Bowel Sounds, Soft Edema: No Labs: CBC, BMP 08/12/17 06:45 08/12/17 06:45 INR, PTT INR 1.58 (0.82-1.09) H 08/10/17 04:11 Assessment/Plan VRE bacteremia Klebsiella UTI Sepsis syndrome- improved Cephalosporin allergy Repeat BC x2 Start daptomycin Contact precautions
--- NOTE | 2017-08-12 15:53 | PN ---
Teaching Attending Note Name of Resident: Miguel Danielle ATTENDING PHYSICIAN STATEMENT I saw and evaluated the patient. I reviewed the resident's note and discussed the case with the resident. I agree with the resident's findings and plan as documented. SUBJECTIVE: no pain. no SOB. poor historian today . over night had delirium and hallucination OBJECTIVE: NAD, awake, dry MM, tacycardic, . minimally cooperative , knows her location, age but not year CV: RRR, no JVD Lungs: CTAB Abd: soft, NT, LLQ colostomy bag with liquid brown stool Ext: no edema ASSESSMENT AND PLAN: 86 y/o lady with multiple medical problems who presented from [place] and was found to have shock . was made comfort measures, extubated but then family decided to revise code status to DNR/DNI 1- Shock : possibly septic. resolved now . unlikely hypovolemic from acute blood loss - blood c x with VRE and urine cx with head-sensitive klebsiella - appreciate ID help: repeat cx and start Dapto and cont azrtreonam - IVF 2- possible GI bleed . OB neg. 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 dispo : HLOC
[2017-08-12] MEDS: LEVOTHYROXINE NA 50 MCG TABLET (FP) PO SCH (16:21)
[2017-08-12] MEDS: PRAMIPEXOLE DIHYDROCHLORIDE 0.25 MG TABLET PO SCH ×2 (16:21→22:10)
--- NOTE | 2017-08-12 16:23 | PN ---
Progress Note (short form) - Note Progress Note: This patient was consulter on by another warp hauler on 08/10/17. Please reach out to them.
[2017-08-12] MEDS ORDERED: PT OWN MED DRAWER 7, Y5N ONE (16:53)
[2017-08-12] MEDS: DAPTOMYCIN IVPB SCH (17:15)
[2017-08-12] MEDS: SODIUM CHLORIDE IVPB SCH (17:15)
[2017-08-12] MEDS: NAPH,MB-DB/K PH,MBDB POWDER PACKET PO ONE ×2 (17:35→17:59)
[2017-08-12] MEDS: MELATONIN 1 MG TABLET PO SCH (22:10)
[2017-08-12] MEDS: SENNOSIDES 8.6MG TABLET (FP) PO SCH (22:10)
[2017-08-13] MEDS: AZTREONAM 1 GM in DEXTROSE 5%-WATER - 50 ML IVPB SCH ×3 (01:05→18:14)
[2017-08-13] MEDS: morphine SULFATE 4 MG/ML VIAL IVPUSH PRN (01:06)
[2017-08-13] MEDS: LEVOTHYROXINE NA 50 MCG TABLET (FP) PO SCH (06:18)
[2017-08-13] MEDS: PRAMIPEXOLE DIHYDROCHLORIDE 0.25 MG TABLET PO SCH ×3 (06:18→22:14)
[2017-08-13 08:07] LABS: SERUM IRON SATURATION 4 % (15-55); TOTAL IRON BINDING CAPACITY 231 ug/dL (250-450); UIBC 221 ug/dL (118-369)
[2017-08-13 09:48] LABS: ANION GAP 9 (8-16); BLOOD UREA NITROGEN 9 mg/dL (7-18); CALCIUM 7.9 mg/dL (8.5-10.1); CHLORIDE 99 mmol/L (98-107); CO2 27 mmol/L (21-32); CREATININE 0.4 mg/dL (0.55-1.02); GLUCOSE,RANDOM 97 mg/dL (74-106); SODIUM 135 mmol/L (136-145)
[2017-08-13 09:58] LABS: POTASSIUM 2.7 mmol/L (3.5-5.1)
[2017-08-13] MEDS ORDERED: PATIENT'S OWN MEDICATION (NON-FORMULARY) (Mirabegron [Myrbetriq] 50 MG) PO SCH (10:00)
[2017-08-13] MEDS ORDERED: PATIENT'S OWN MEDICATION (NON-FORMULARY) (Ubidecarenone [Co Q-10] 100 MG) PO SCH (10:00)
[2017-08-13] MEDS: POTASSIUM CHLORIDE ORAL LIQUID 20 MEQ/15 ML PO SCH ×2 (10:31→22:17)
[2017-08-13] MEDS: SODIUM CHLORIDE IVPB SCH (10:31)
[2017-08-13] MEDS: DAPTOMYCIN IVPB SCH (10:31)
[2017-08-13] MEDS: OMEGA-3 ACID ETHYL ESTERS (FATTY-ACIDS) 1 GM CAPSULE (FP) PO SCH (10:31)
[2017-08-13] MEDS: CITALOPRAM HYDROBROMIDE 20 MG TABLET (FP) PO SCH (10:38)
[2017-08-13] MEDS ORDERED: PT OWN MED DRAWER 7, Y5N ONE ×2 (12:22→18:13)
[2017-08-13] MEDS: POTASSIUM CHLORIDE 10 MEQ in SODIUM CHLORIDE 100 ML IVPB SCH ×3 (12:31→18:15)
--- NOTE | 2017-08-13 12:50 | CONSULT ---
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 Refusing all PO intake. History Source: Medical Record Limitations to Obtaining History: Clinical Condition, Dementia - Past Medical History ...: No Musculoskeletal: Yes: Other (complete care) - Smoking History Smoking history: Unknown if ever smoked Have you smoked in the past 12 months: No - Alcohol/Substance Use Hx Alcohol Use: No History - Admission Reason For Visit: SEVERE SEPSIS - Diagnostics X-ray: Report Reviewed CT Scan: Report Reviewed - General Mental Status: Awake and Alert, Able to Follow Commands, Confused Attention: Intact Ability to Follow Directions: Fair Head/Neck Control: Good - Hearing Hearing: Functional Speech Evaluation - Communication Primary Language: ICELANDIC Communication: Yes: Within Normal Limits Oral Expression Ability: Yes: Mild Impairment, Moderate Impairment - Speech Production Able to Make Needs Known: Yes: WNL Intelligibility: Yes: WNL - Speech Characteristics Voice Loudness: Normal Voice Pitch: Yes: Normal Voice Phonatory-based Quality: Yes: Normal Speech Pattern: Normal Speech Clarity: < 100% Nasal Resonance: Normal Articulation: Yes: Precise - Language/Auditory Comprehension Follows: Yes: 1 Stage Simple Commands - Language/Verbal Expression Aphasia: Yes: Fluent, Anomia - Swallow Evaluation/Bedside Assessment Current Nutritional Intake: Dysphagia Pureed, Honey Textured Liquids Oral Secretions: Yes: WFL Dentition: Yes: Adequate Facial Symmetry at Rest: Symmetrical Facial Symmetry on Retraction: Symmetrical Sensation: Normal Against Resistance Opening: Normal Against Resistance Closing: Normal Pucker Lips: Normal Smile: Normal Lingual Movement: Normal, Symmetric Lingual Speed of Movement: Normal Lingual Movement Strgth Against Opposition: Normal Lingual Movement Characteristics: Normal Velopharyngeal Movement: Normal Laryngeal Elevation: WFL Laryngeal Movement: Able to Palpate Rate of Intake: WFL Bolus Size: Small Labial Seal: WFL Chewing: WFL Oral Prep Time: WFL A-P Transit: WFL Pocketing: None Timing of Swallow: WFL Coughing/Throat Clear: No Change in Voice: No Recommendations - Speech Evaluation, Impression/Plan Impression: Confused, verbal but anomic, tangential. Acutely delusional. Change from baseline.Speech production WNL. Refusing most PO intake, but accepted 1 sip of water and 1 bite of a cookie. She said she would "love a chopped salad qith [place] dressing and a roll.". No overt signs of dysphagia. Confusion and dystractibility may adversely affect PO acceptance. - Disposition Discharge to: Residential Facility - Dysphagia Impressions/Plan Dysphagia Impressions: No Impairment *Silent aspiration: cannot be R/O at bedside - Recommendations Diet Consistency: Regular (per pt's preferences. May benefit from finger foods, to facilitate self feeding and acceptance.) Liquids: Thin Liquids Supplement: Ensure
[2017-08-13 13:53] LABS: MAGNESIUM 1.6 mg/dL (1.8-2.4); PHOSPHOROUS 1.5 mg/dL (2.5-4.9)
[2017-08-13] MEDS ORDERED: NAPH,MB-DB/K PH,MBDB POWDER PACKET PO ONE (14:30)
--- NOTE | 2017-08-13 14:45 | PN ---
Physical Exam: SUBJECTIVE: Patient seen and examined at bedside. Mental status has improved but very delirious still. Denies any pain. OBJECTIVE: Vital Signs Period Temp Pulse Resp BP Sys/Forte Pulse Ox Last 24 Hr 98.1 F-98.4 F 86-93 18-20 142-146/76-83 92-92 GENERAL: Alert but not oriented CARDS: RRR, no murmurs PULM: CTA ABD: soft, nontender, colostomy bag in place with soft brown stool emanating, periumbilical hernia noted with BS present through hernia EXTREMITIES: 1+ edema b/l, 2+ pulses Laboratory Results - last 24 hr 08/10/17 08/11/17 08/13/17 04:11 11:00 09:00 Sodium 135 L Potassium 2.7 L* Chloride 99 Carbon Dioxide 27 Anion Gap 9 BUN 9 Creatinine 0.4 L Random Glucose 97 Calcium 7.9 L Phosphorus 1.5 L Magnesium 1.6 L Iron 10 L TIBC 231 L Iron Saturation 4 L TSH 2.89 Free T4 1.36 Blood Type O NEGATIVE Antibody Screen Negative Crossmatch See Detail 08/13/17 11:00 Sodium Potassium Chloride Carbon Dioxide Anion Gap BUN Creatinine Random Glucose Calcium Phosphorus Magnesium Iron TIBC Iron Saturation TSH Cancelled Free T4 Cancelled Blood Type Antibody Screen Crossmatch Active Medications Generic Name Dose Route Start Last Admin Trade Name Freq PRN Reason Stop Dose Admin Acetaminophen 650 mg 08/11/17 15:46 Tylenol Suppository - DC Q4H PRN FEVER Acetaminophen 1,000 mg 08/12/17 14:16 08/12/17 14:49 Ofirmev Injection - IVPB 1,000 mg Q6H PRN Administration PAIN Citalopram Hydrobromide 20 mg 08/12/17 10:00 08/13/17 10:38 Celexa - PO 20 mg DAILY JOHNNY Administration Dextrose/Sodium Chloride 1,000 mls @ 100 mls/hr 08/11/17 15:46 08/12/17 17:19 D5-Ns - IV 100 mls/hr ASDIR JOHNNY Administration Aztreonam 1 gm/ Dextrose 50 mls @ 100 mls/hr 08/11/17 18:00 08/13/17 12:30 IVPB 100 mls/hr Q8H-IV JOHNNY Administration Protocol Daptomycin 360 mg/ Sodium 100 mls @ 200 mls/hr 08/12/17 14:45 08/13/17 10:31 Chloride IVPB 200 mls/hr DAILY JOHNNY Administration Protocol MAGNESIUM SULFATE IN WATER 2 gm in 50 mls @ 50 mls/hr 08/13/17 15:00 Magnesium Sulf 2 G/50 Ml Bag IVPB 08/13/17 15:59 ONCE ONE Levothyroxine Sodium 50 mcg 08/12/17 12:00 08/13/17 06:18 Synthroid - PO Not Given DAILY@0700 JOHNNY Melatonin 3 mg 08/12/17 22:00 08/12/17 22:10 Melatonin PO Not Given HS JOHNNY Morphine Sulfate 4 mg 08/11/17 15:46 08/13/17 01:06 Morphine Sulfate IVPUSH 4 mg Q4H PRN Administration PAIN LEVEL 6-10 Non-Formulary Medication 50 mg 08/13/17 10:00 Mirabegron [Myrbetriq] PO DAILY [facility] Vbwcc-9-Ashp Ethyl Esters 1,000 gm 08/13/17 10:00 08/13/17 10:31 Lovaza - PO Not Given DAILY JOHNNY Potassium Chloride 40 meq 08/13/17 10:30 08/13/17 10:31 Potassium Chloride Oral Liquid PO 40 meq BID JOHNNY Administration Pramipexole Dihydrochloride 0.25 mg 08/12/17 14:00 08/13/17 06:18 Mirapex - PO Not Given TID JOHNNY Senna 2 tab 08/12/17 22:00 08/12/17 22:10 Senna - PO Not Given HS JOHNNY Simethicone 80 mg 08/12/17 10:13 Mylicon - PO BID PRN DYSPEPSIA ASSESSMENT/PLAN: 86 year old female with a past medical history of dementia, stroke, 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), ovarian CA, UTIs, admitted for shock secondary to unknown etiology #VRE Bacteremia: not present on f/u cultures -continue daptomycin day 2 -continue aztreonam -patient is off comfort care measures, keeping DNR/DNI -ID consult appreciated -monitor H&H, BP -IV tylenol for pain #Hypokalemia: potassium 2.7 this AM -give K dur BID and 3 bags of IV potassium 10mg -mag 1.6, replete magnesium -repeat potassium at 7pm to reassess -monitor in AM #Shock: Likely due to spesis, resolved #Severe anemia: resolved -patient's family does not want GI intervention #Delerium: likely 2/2 sepsis -CT head negative for acute intracranial pathology -duplex refused #Urinary Retention: pearson removed, retention resolved #Hypothyroidism: stable -will recheck TSH due to delirium -continue levothyroxine #FEN: -D5NS @ 100cc/hr -regular diet with thin liquids and ensure supplements -replete lytes in AM #Prophylaxis -SCDs due to possible bleed Disposition: -continue to monitor on med-surg -if continues to improve, dispo planning to SNF/NH Visit type - Emergency Visit Emergency Visit: No - New Patient This patient is new to me today: No - Critical Care Critical Care patient: No
[2017-08-13] MEDS ORDERED: MAGNESIUM SULFATE IN WATER 2 GM/50 ML IVPB IVPB ONE (15:00)
--- NOTE | 2017-08-13 15:36 | PN ---
Progress Note, Physician History of Present Illness: Much more awake and alert Offers no complaints No acute distress Temps down Afebrile BC+ VRE Urine c/s Klebsiella sp. +C difficile ag - Current Medication List Current Medications: Active Medications Acetaminophen (Tylenol Suppository -) 650 mg [place] Q4H PRN PRN Reason: FEVER Acetaminophen (Ofirmev Injection -) 1,000 mg IVPB Q6H PRN PRN Reason: PAIN Last Admin: 08/12/17 14:49 Dose: 1,000 mg Citalopram Hydrobromide (Celexa -) 20 mg PO DAILY [facility] Last Admin: 08/13/17 10:38 Dose: 20 mg Dextrose/Sodium Chloride (D5-Ns -) 1,000 mls @ 100 mls/hr IV ASDIR [facility] Last Admin: 08/12/17 17:19 Dose: 100 mls/hr Aztreonam 1 gm/ Dextrose 50 mls @ 100 mls/hr IVPB Q8H-IV JOHNNY PRN Reason: Protocol Last Admin: 08/13/17 12:30 Dose: 100 mls/hr Daptomycin 360 mg/ Sodium (Chloride) 100 mls @ 200 mls/hr IVPB DAILY JOHNNY PRN Reason: Protocol Last Admin: 08/13/17 10:31 Dose: 200 mls/hr MAGNESIUM SULFATE IN WATER (Magnesium Sulf 2 G/50 Ml Bag) 2 gm in 50 mls @ 50 mls/hr IVPB ONCE ONE Stop: 08/13/17 15:59 Last Admin: 08/13/17 15:31 Dose: 50 mls/hr Levothyroxine Sodium (Synthroid -) 50 mcg PO DAILY@0700 [facility] Last Admin: 08/13/17 06:18 Dose: Not Given Melatonin (Melatonin) 3 mg PO HS [facility] Last Admin: 08/12/17 22:10 Dose: Not Given Morphine Sulfate (Morphine Sulfate) 4 mg IVPUSH Q4H PRN PRN Reason: PAIN LEVEL 6-10 Last Admin: 08/13/17 01:06 Dose: 4 mg Non-Formulary Medication (Mirabegron [Myrbetriq]) 50 mg PO DAILY [facility] Ruafn-5-Glms Ethyl Esters (Lovaza -) 1,000 gm PO DAILY [facility] Last Admin: 08/13/17 10:31 Dose: Not Given Potassium Chloride (Potassium Chloride Oral Liquid) 40 meq PO BID [facility] Stop: 08/13/17 22:00 Last Admin: 08/13/17 10:31 Dose: 40 meq Pramipexole Dihydrochloride (Mirapex -) 0.25 mg PO TID [facility] Last Admin: 08/13/17 06:18 Dose: Not Given Senna (Senna -) 2 tab PO HS [facility] Last Admin: 08/12/17 22:10 Dose: Not Given Simethicone (Mylicon -) 80 mg PO BID PRN PRN Reason: DYSPEPSIA - Objective Vital Signs: Vital Signs Temperature 98.3 F 08/13/17 15:08 Pulse Rate 93 H 08/13/17 15:08 Respiratory Rate 18 08/13/17 15:08 Blood Pressure 154/75 08/13/17 15:08 O2 Sat by Pulse Oximetry (%) 92 L 08/13/17 09:00 Constitutional: Yes: No Distress, Cachectic Cardiovascular: Yes: Regular Rate and Rhythm, S1, S2 Respiratory: Yes: Diminished Gastrointestinal: Yes: Normal Bowel Sounds, Soft, Abdomen, Obese, Other (+ostomy ). No: Tenderness Edema: No Labs: CBC, BMP 08/12/17 06:45 08/13/17 09:00 INR, PTT INR 1.58 (0.82-1.09) H 08/10/17 04:11 Assessment/Plan VRE bacteremia repeat BC prelim no growth Klebsiella UTI Sepsis syndrome- improved Cephalosporin allergy + C difficile ag Check repeat BC x2 Continue daptomycin/aztreonam PO vancomycin Contact precautions
[2017-08-13] MEDS: DEXTROSE 5%-NORMAL SALINE 1,000 ML IV SCH (17:00)
[2017-08-13] MEDS: VANCOMYCIN 250 MG/5 ML ORAL SOLUTION PO SCH (18:15)
--- NOTE | 2017-08-13 19:16 | PN ---
Teaching Attending Note Name of Resident: Miguel Danielle ATTENDING PHYSICIAN STATEMENT I saw and evaluated the patient. I reviewed the resident's note and discussed the case with the resident. I agree with the resident's findings and plan as documented.NAD, awake, dry MM, tacycardic, . minimally cooperative , knows her location, age but not year ASSESSMENT AND PLAN: 86 y/o lady with multiple medical problems who presented from [place] and was found to have shock . was made comfort measures, extubated but then family decided to revise code status to DNR/DNI 1- Shock: possibly septic. resolved now . unlikely hypovolemic from acute blood loss - blood cx with VRE and urine cx with head-sensitive klebsiella - follow repeat cx and and Dapto and cont azrtreonam - IVF 2- possible GI bleed . OB neg. family had declined further w/u 3- H/o depression: Cont celexa 4- normocytic anemia: improved after transfusion .iron studies do not indicate iron def 5- Acute delirium, due to acute illness and environmental change. slightly improved , but has paranoia team discussed with wang who denied any psych h/o but has been paranoid inpast 2 years. if no resolution , will get psych HLOC
[2017-08-13] MEDS: MELATONIN 1 MG TABLET PO SCH (22:16)
[2017-08-13] MEDS: SENNOSIDES 8.6MG TABLET (FP) PO SCH (22:17)
[2017-08-14] MEDS: VANCOMYCIN 250 MG/5 ML ORAL SOLUTION PO SCH ×5 (00:53→23:09)
[2017-08-14] MEDS: DEXTROSE 5%-NORMAL SALINE 1,000 ML IV SCH ×2 (00:53→10:30)
[2017-08-14] MEDS: AZTREONAM 1 GM in DEXTROSE 5%-WATER - 50 ML IVPB SCH ×3 (00:59→17:00)
[2017-08-14] MEDS ORDERED: POTASSIUM CHLORIDE ORAL LIQUID 20 MEQ/15 ML PO ONE (04:51)
[2017-08-14] MEDS: LEVOTHYROXINE NA 50 MCG TABLET (FP) PO SCH (06:17)
[2017-08-14] MEDS: PRAMIPEXOLE DIHYDROCHLORIDE 0.25 MG TABLET PO SCH ×3 (06:18→21:12)
[2017-08-14 07:46] LABS: CHLORIDE 100 mmol/L (98-107); SODIUM 137 mmol/L (136-145)
[2017-08-14 07:50] LABS: HEMATOCRIT 34.5 % (32.4-45.2); HEMOGLOBIN 11.5 GM/dL (10.7-15.3); MCH 26.9 pg (25.7-33.7); MCHC 33.4 g/dl (32.0-36.0); MEAN CELL VOLUME 80.4 fl (80-96); MEAN PLT VOLUME 8.3 fl (7.5-11.1); PLATELET COUNT 289 K/MM3 (134-434); RBC 4.29 M/mm3 (3.60-5.2); RDW 16.9 % (11.6-15.6); WHITE BLOOD COUNT 5.9 K/mm3 (4.0-10.0)
[2017-08-14 08:15] LABS: ALBUMIN 2.5 g/dl (3.4-5.0); ALK PHOS 76 U/L (45-117); ANION GAP 12 (8-16); BILIRUBIN,TOTAL 0.6 mg/dL (0.2-1.0); BLOOD UREA NITROGEN 7 mg/dL (7-18); CALCIUM 8.4 mg/dL (8.5-10.1); CO2 25 mmol/L (21-32); CREATININE 0.4 mg/dL (0.55-1.02); GLUCOSE,RANDOM 115 mg/dL (74-106); PHOSPHOROUS 1.7 mg/dL (2.5-4.9); SGOT/AST 36 U/L (15-37); SGPT/ALT 28 U/L (12-78); TOT PROT 7.7 g/dl (6.4-8.2)
[2017-08-14] MEDS: CITALOPRAM HYDROBROMIDE 20 MG TABLET (FP) PO SCH (09:28)
[2017-08-14] MEDS: OMEGA-3 ACID ETHYL ESTERS (FATTY-ACIDS) 1 GM CAPSULE (FP) PO SCH (09:28)
[2017-08-14] MEDS: DAPTOMYCIN IVPB SCH (10:16)
[2017-08-14] MEDS: SODIUM CHLORIDE IVPB SCH (10:16)
[2017-08-14] MEDS ORDERED: POTASSIUM PHOSPHATE 40 MM in SODIUM CHLORIDE 250 ML IVPB ONE ×2 (13:54→14:45)
--- NOTE | 2017-08-14 14:39 | PN ---
Teaching Attending Note Name of Resident: Amy Majano ATTENDING PHYSICIAN STATEMENT I saw and evaluated the patient. I reviewed the resident's note and discussed the case with the resident. I agree with the resident's findings and plan as documented. SUBJECTIVE: no fever or chills, denies any pain. limited h/o due to confusion OBJECTIVE: NAD , awake , alert , coocperative , dowd s not know location , knows year, thinks she is 66 y/o . CV: RRR Lungs : CTAB Abd: soft, Nt, ND , NL BS , LLQ colostomy bag with minimal amount of liquid stoop Ext: no edema ASSESSMENT AND PLAN: 86 y/o lady with multiple medical problems who presented from [place] and was found to have shock . was made comfort measures, extubated but then family decided to revise code status to DNR/DNI 1- Shock: possibly septic from UTI/pyelonephritis .shock resolved . unlikely hypovolemic from acute blood loss - blood cx with VRE and urine cx with head-sensitive klebsiella - follow repeat cx and and Dapto and cont azrtreonam - IVF , might dc tomorrow - on po vanco fro + c diff AG , started yesterday 2- possible GI bleed . OB neg. family had declined further w/u 3- H/o depression: Cont celexa 4- normocytic anemia: improved after transfusion .iron studies do not indicate iron def 5- Acute delirium, due to acute illness and environmental change. slightly improved , paranoia has improved if no resolution , will get psych eval 6- replete K and phos HLOC
--- NOTE | 2017-08-14 14:52 | PN ---
Progress Note (short form) - Note Progress Note: awake and alert thinks she is at the [place] Vital Signs Period Temp Pulse Resp BP Sys/Forte Pulse Ox Last 24 Hr 97.8 F-98.6 F 79-93 18-18 131-154/69-90 91 cor-rrr lungs clear abd soft,nt+ostomy ext contracted CBC, BMP 08/14/17 06:30 08/14/17 06:30 Microbiology 08/10/17 04:11 Blood - Peripheral Venous Blood Culture - Preliminary NO GROWTH OBTAINED AFTER 96 HOURS, INCUBATION TO CONTINUE FOR 1 DAYS. 08/12/17 20:00 Blood - Peripheral Venous Blood Culture - Preliminary NO GROWTH OBTAINED AFTER 24 HOURS, INCUBATION TO CONTINUE FOR 4 DAYS. 08/10/17 04:11 Blood - Peripheral Venous Blood Culture - Final Vr Ec Faecium 08/10/17 06:00 Urine - Urine Moreno Urine Culture - Final Klebsiella Oxytoca 08/10/17 11:00 Stool Clostridium difficile Antigen (ADRIÁN) - Final 08/10/17 11:00 Stool Clostridium difficile Toxin Assay - Final Current Medications Acetaminophen (Tylenol Suppository -) 650 mg AR Q4H PRN PRN Reason: FEVER Acetaminophen (Ofirmev Injection -) 1,000 mg IVPB Q6H PRN PRN Reason: PAIN Last Admin: 08/12/17 14:49 Dose: 1,000 mg Citalopram Hydrobromide (Celexa -) 20 mg PO DAILY [facility] Last Admin: 08/14/17 09:28 Dose: 20 mg Dextrose/Sodium Chloride (D5-Ns -) 1,000 mls @ 100 mls/hr IV ASDIR JOHNNY Last Admin: 08/14/17 00:53 Dose: 100 mls/hr Aztreonam 1 gm/ Dextrose 50 mls @ 100 mls/hr IVPB Q8H-IV JOHNNY PRN Reason: Protocol Last Admin: 08/14/17 09:27 Dose: 100 mls/hr Daptomycin 360 mg/ Sodium (Chloride) 100 mls @ 200 mls/hr IVPB DAILY JOHNNY PRN Reason: Protocol Last Admin: 08/14/17 10:16 Dose: 200 mls/hr Potassium Phosphate 40 mm/ (Sodium Chloride) 263.3333 mls @ 62.5 mls/hr IVPB ONCE ONE Stop: 08/14/17 18:06 Last Admin: 08/14/17 14:22 Dose: 62.5 mls/hr Levothyroxine Sodium (Synthroid -) 50 mcg PO DAILY@0700 [facility] Last Admin: 08/14/17 06:17 Dose: 50 mcg Melatonin (Melatonin) 3 mg PO HS [facility] Last Admin: 08/13/17 22:16 Dose: 3 mg Morphine Sulfate (Morphine Sulfate) 4 mg IVPUSH Q4H PRN PRN Reason: PAIN LEVEL 6-10 Last Admin: 08/13/17 01:06 Dose: 4 mg Non-Formulary Medication (Mirabegron [Myrbetriq]) 50 mg PO DAILY [facility] Ebpny-7-Uzgm Ethyl Esters (Lovaza -) 1,000 gm PO DAILY [facility] Last Admin: 08/14/17 09:28 Dose: 1,000 gm Pramipexole Dihydrochloride (Mirapex -) 0.25 mg PO TID [facility] Last Admin: 08/14/17 14:22 Dose: 0.25 mg Senna (Senna -) 2 tab PO [facility] Last Admin: 08/13/17 22:17 Dose: 2 tab Simethicone (Mylicon -) 80 mg PO BID PRN PRN Reason: DYSPEPSIA Vancomycin HCl (Vancomycin Oral Solution) 125 mg PO Q6HPO [facility] Last Admin: 08/14/17 14:22 Dose: 250 ml a/p vre bacteremia- continue daptomycin, repeat blood cultures pending #3 Klebsiella uti- continue azactam (cephalosporin allergy)#4 cdiff antigen positive- continue po vancomycin doing well Problem List - Problems (1) Sepsis Code(s): A41.9 - SEPSIS, UNSPECIFIED ORGANISM (2) Respiratory failure Code(s): J96.90 - RESPIRATORY FAILURE, UNSP, UNSP W HYPOXIA OR HYPERCAPNIA (3) Anemia Code(s): D64.9 - ANEMIA, UNSPECIFIED (4) Allergy to antibiotic Code(s): Z88.1 - ALLERGY STATUS TO OTHER ANTIBIOTIC AGENTS STATUS (5) UTI (urinary tract infection) Code(s): N39.0 - URINARY TRACT INFECTION, SITE NOT SPECIFIED (6) Diarrhea Code(s): R19.7 - DIARRHEA, UNSPECIFIED (7) Aspiration pneumonia Code(s): J69.0 - PNEUMONITIS DUE TO INHALATION OF FOOD AND VOMIT
[2017-08-14] MEDS ORDERED: POTASSIUM PHOSPHATE 40 MM in SODIUM CHLORIDE 500 ML IVPB ONE (15:00)
--- NOTE | 2017-08-14 16:42 | PN ---
Physical Exam: SUBJECTIVE: Patient seen and examined Patient resting in bed NAD. afebrile hemodynamically stable. No acute events. Complains of chronic pain in LLE. No longer has paranoid ideations. oriented to self only. good mood, hungry. Denies CP, SOB, h/a, abd pain. OBJECTIVE: Vital Signs Period Temp Pulse Resp BP Sys/Forte Pulse Ox Last 24 Hr 97.3 F-98.6 F 74-92 16-20 131-149/69-95 91-96 GENERAL: The patient is awake, alert, and oriented to self only, in no acute distress. HEAD: Normal with no signs of trauma. EYES: PERRL, extraocular movements intact, sclera anicteric, conjunctiva clear. No ptosis. ENT: moist mucous membranes. NECK: Trachea midline, full range of motion, supple. LUNGS: Breath sounds equal, clear to auscultation bilaterally, no wheezes, no crackles, no accessory muscle use. HEART: Regular rate and rhythm, S1, S2 ABDOMEN: Soft, nontender, nondistended, normoactive bowel sounds, no guarding, no rebound, no masses. EXTREMITIES: 2+ pulses, warm, well-perfused, no edema. NEUROLOGICAL: Cranial nerves II through XII grossly intact. Normal speech, gait not observed. PSYCH: Normal mood, normal affect. SKIN: Warm, dry Laboratory Results - last 24 hr 08/13/17 08/14/17 08/14/17 19:00 06:30 06:30 WBC 5.9 RBC 4.29 Hgb 11.5 D Hct 34.5 MCV 80.4 MCH 26.9 MCHC 33.4 RDW 16.9 H Plt Count 289 MPV 8.3 Sodium 137 Potassium 3.3 L 3.0 L Chloride 100 Carbon Dioxide 25 Anion Gap 12 BUN 7 Creatinine 0.4 L Creat Clearance w eGFR > 60 Random Glucose 115 H Calcium 8.4 L Phosphorus 1.7 L Magnesium Total Bilirubin 0.6 AST 36 ALT 28 Alkaline Phosphatase 76 Total Protein 7.7 Albumin 2.5 L 08/14/17 10:02 WBC RBC Hgb Hct MCV MCH MCHC RDW Plt Count MPV Sodium Potassium Chloride Carbon Dioxide Anion Gap BUN Creatinine Creat Clearance w eGFR Random Glucose Calcium Phosphorus Magnesium 2.0 Total Bilirubin AST ALT Alkaline Phosphatase Total Protein Albumin Active Medications Generic Name Dose Route Start Last Admin Trade Name Freq PRN Reason Stop Dose Admin Acetaminophen 650 mg 08/11/17 15:46 Tylenol Suppository - [place] Q4H PRN FEVER Acetaminophen 1,000 mg 08/12/17 14:16 08/12/17 14:49 Ofirmev Injection - IVPB 1,000 mg Q6H PRN Administration PAIN Citalopram Hydrobromide 20 mg 08/12/17 10:00 08/14/17 09:28 Celexa - PO 20 mg DAILY JOHNNY Administration Dextrose/Sodium Chloride 1,000 mls @ 100 mls/hr 08/11/17 15:46 08/14/17 00:53 D5-Ns - IV 100 mls/hr ASDIR JOHNNY Administration Aztreonam 1 gm/ Dextrose 50 mls @ 100 mls/hr 08/11/17 18:00 08/14/17 09:27 IVPB 100 mls/hr Q8H-IV JOHNNY Administration Protocol Daptomycin 360 mg/ Sodium 100 mls @ 200 mls/hr 08/12/17 14:45 08/14/17 10:16 Chloride IVPB 200 mls/hr DAILY JOHNNY Administration Protocol Potassium Phosphate 40 mm/ 513.3333 mls @ 64.167 mls/hr 08/14/17 15:00 Sodium Chloride IVPB 08/14/17 22:59 ONCE ONE Levothyroxine Sodium 50 mcg 08/12/17 12:00 08/14/17 06:17 Synthroid - PO 50 mcg DAILY@0700 JOHNNY Administration Melatonin 3 mg 08/12/17 22:00 08/13/17 22:16 Melatonin PO 3 mg HS JOHNNY Administration Non-Formulary Medication 50 mg 08/13/17 10:00 Mirabegron [Myrbetriq] PO DAILY JOHNNY Dthaw-7-Mpuo Ethyl Esters 1,000 gm 08/13/17 10:00 08/14/17 09:28 Lovaza - PO 1,000 gm DAILY JOHNNY Administration Pramipexole Dihydrochloride 0.25 mg 08/12/17 14:00 08/14/17 14:22 Mirapex - PO 0.25 mg TID JOHNNY Administration Senna 2 tab 08/12/17 22:00 08/13/17 22:17 Senna - PO 2 tab HS JOHNNY Administration Simethicone 80 mg 08/12/17 10:13 Mylicon - PO BID PRN DYSPEPSIA Vancomycin HCl 125 mg 08/13/17 18:00 08/14/17 14:22 Vancomycin Oral Solution PO 250 ml Q6HPO [facility] Administration ASSESSMENT/PLAN: 86 year old female with a past medical history of dementia, stroke, 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), ovarian CA, UTIs, admitted for shock secondary to unknown etiology VRE Bacteremia: -cleared on last culture -ID consult appreciated; daptomycin, aztreonam D3 -IV tylenol for pain -picc line placement Mon then d/c NH C Diff antigen + -Flagyl changed to PO Vanco per new IDSA guidelines Anemia: -hgb stable at 11.5 -patient's family does not want GI intervention Delirium: -likely secondary to sepsis; mild improvement -CT head negative for acute intracranial pathology Hypothyroidism: -continue levothyroxine FEN: D5NS @ 100cc/hr, can lower when po intake improves Repleted K, phos regular diet with thin liquids SCDs DNR DNI Disposition: m/s; dispo planning to [place] Problem List - Problems (1) Delirium Code(s): R41.0 - DISORIENTATION, UNSPECIFIED (2) C. difficile enteritis Code(s): A04.72 - ENTEROCOLITIS D/T CLOSTRIDIUM DIFFICILE, NOT SPCF RECUR (3) Anemia Code(s): D64.9 - ANEMIA, UNSPECIFIED (4) Diarrhea Code(s): R19.7 - DIARRHEA, UNSPECIFIED (5) Sepsis Code(s): A41.9 - SEPSIS, UNSPECIFIED ORGANISM (6) Septic shock Code(s): A41.9 - SEPSIS, UNSPECIFIED ORGANISM; R65.21 - SEVERE SEPSIS WITH SEPTIC SHOCK (7) Severe sepsis Code(s): A41.9 - SEPSIS, UNSPECIFIED ORGANISM; R65.20 - SEVERE SEPSIS WITHOUT SEPTIC SHOCK (8) UTI (urinary tract infection) Code(s): N39.0 - URINARY TRACT INFECTION, SITE NOT SPECIFIED (9) Hypothyroid Code(s): E03.9 - HYPOTHYROIDISM, UNSPECIFIED Visit type - Emergency Visit Emergency Visit: Yes ED Registration Date: 08/10/17 Care time: The patient presented to the Emergency Department on the above date and was hospitalized for further evaluation of their emergent condition. - New Patient This patient is new to me today: No - Critical Care Critical Care patient: No - Discharge Referral Referred to [facility] Med P.C.: No
[2017-08-14] MEDS ORDERED: PT OWN MED DRAWER 7, Y5N ONE ×3 (16:52→20:45)
[2017-08-14] MEDS: SENNOSIDES 8.6MG TABLET (FP) PO SCH (21:11)
[2017-08-14] MEDS: MELATONIN 1 MG TABLET PO SCH (21:11)
[2017-08-15] MEDS ORDERED: PT OWN MED DRAWER 7, Y5N ONE ×5 (01:47→22:07)
[2017-08-15] MEDS: AZTREONAM 1 GM in DEXTROSE 5%-WATER - 50 ML IVPB SCH ×3 (01:51→17:15)
[2017-08-15] MEDS: LEVOTHYROXINE NA 50 MCG TABLET (FP) PO SCH (06:16)
[2017-08-15] MEDS: PRAMIPEXOLE DIHYDROCHLORIDE 0.25 MG TABLET PO SCH ×3 (06:16→23:03)
[2017-08-15] MEDS: VANCOMYCIN 250 MG/5 ML ORAL SOLUTION PO SCH ×4 (06:16→23:03)
[2017-08-15 07:37] LABS: HEMATOCRIT 34.3 % (32.4-45.2); HEMOGLOBIN 11.4 GM/dL (10.7-15.3); MCH 26.8 pg (25.7-33.7); MCHC 33.2 g/dl (32.0-36.0); MEAN CELL VOLUME 80.5 fl (80-96); MEAN PLT VOLUME 8.1 fl (7.5-11.1); PLATELET COUNT 284 K/MM3 (134-434); RBC 4.26 M/mm3 (3.60-5.2); RDW 16.7 % (11.6-15.6); WHITE BLOOD COUNT 5.5 K/mm3 (4.0-10.0)
[2017-08-15 07:51] LABS: ANION GAP 8 (8-16); BLOOD UREA NITROGEN 8 mg/dL (7-18); CALCIUM 7.7 mg/dL (8.5-10.1); CHLORIDE 101 mmol/L (98-107); CO2 27 mmol/L (21-32); CREATININE 0.4 mg/dL (0.55-1.02); GLUCOSE,RANDOM 107 mg/dL (74-106); MAGNESIUM 1.8 mg/dL (1.8-2.4); PHOSPHOROUS 3.5 mg/dL (2.5-4.9); POTASSIUM 3.2 mmol/L (3.5-5.1); SODIUM 136 mmol/L (136-145)
[2017-08-15] MEDS ORDERED: POTASSIUM CHLORIDE ORAL LIQUID 20 MEQ/15 ML PO ONE (08:45)
[2017-08-15] MEDS: CITALOPRAM HYDROBROMIDE 20 MG TABLET (FP) PO SCH (10:01)
--- NOTE | 2017-08-15 10:52 | PN ---
Progress Note (short form) - Note Progress Note: awake and alert nurse reports poor appetite, minimal output from ostomy Vital Signs Period Temp Pulse Resp BP Sys/Forte Pulse Ox Last 24 Hr 97.3 F-98.7 F 77-92 18-20 139-148/86-95 97 cor-rrr lungs-clear abd soft, +ostomy ext contracted CBC, BMP 08/15/17 06:00 08/15/17 06:00 Microbiology 08/10/17 04:11 Blood - Peripheral Venous Blood Culture - Final NO GROWTH AFTER 5 DAYS INCUBATION 08/12/17 20:00 Blood - Peripheral Venous Blood Culture - Preliminary NO GROWTH OBTAINED AFTER 48 HOURS, INCUBATION TO CONTINUE FOR 3 DAYS. 08/10/17 04:11 Blood - Peripheral Venous Blood Culture - Final Vr Ec Faecium 08/10/17 06:00 Urine - Urine Moreno Urine Culture - Final Klebsiella Oxytoca 08/10/17 11:00 Stool Clostridium difficile Antigen (ADRIÁN) - Final 08/10/17 11:00 Stool Clostridium difficile Toxin Assay - Final a/p vre bacteremia- continue daptomycin, repeat blood cultures negative after 48h- day #4 antibiotics, will get echo Klebsiella uti- continue azactam (cephalosporin allergy)day #5 cdiff antigen positive- continue po vancomycin Problem List - Problems (1) Sepsis Code(s): A41.9 - SEPSIS, UNSPECIFIED ORGANISM (2) Respiratory failure Code(s): J96.90 - RESPIRATORY FAILURE, UNSP, UNSP W HYPOXIA OR HYPERCAPNIA (3) Anemia Code(s): D64.9 - ANEMIA, UNSPECIFIED (4) Allergy to antibiotic Code(s): Z88.1 - ALLERGY STATUS TO OTHER ANTIBIOTIC AGENTS STATUS (5) UTI (urinary tract infection) Code(s): N39.0 - URINARY TRACT INFECTION, SITE NOT SPECIFIED (6) Diarrhea Code(s): R19.7 - DIARRHEA, UNSPECIFIED (7) Aspiration pneumonia Code(s): J69.0 - PNEUMONITIS DUE TO INHALATION OF FOOD AND VOMIT
[2017-08-15] MEDS: DAPTOMYCIN IVPB SCH (11:05)
[2017-08-15] MEDS: SODIUM CHLORIDE IVPB SCH (11:05)
[2017-08-15] MEDS ORDERED: DEXTROSE 5%-NORMAL SALINE 1,000 ML IV SCH (12:53)
--- NOTE | 2017-08-15 13:03 | PN ---
Progress Note (short form) - Note Progress Note: Subjective: no fever or chills, denies any pain. limited hx due to delirium Objective: Vital Signs: Last Vital Signs Temp Pulse Resp BP Pulse Ox 98.7 F 92 H 20 142/86 97 08/15/17 06:13 08/15/17 06:13 08/15/17 06:13 08/15/17 06:13 08/14/17 21:26 Laboratory Results - last 24 hr 08/14/17 08/15/17 08/15/17 10:02 06:00 06:00 WBC 5.5 RBC 4.26 Hgb 11.4 Hct 34.3 MCV 80.5 MCH 26.8 MCHC 33.2 RDW 16.7 H Plt Count 284 MPV 8.1 Sodium 136 Potassium 3.2 L Chloride 101 Carbon Dioxide 27 Anion Gap 8 BUN 8 Creatinine 0.4 L Random Glucose 107 H Calcium 7.7 L Phosphorus 3.5 Magnesium 2.0 1.8 Physical Exam: NAD , awake , alert , cooperative , knows she is in hospital CV: RRR Lungs : CTAB Abd: soft, NT, ND , NL BS , LLQ colostomy bag with minimal amount of liquid stoop Ext: no edema, contracted legs ASSESSMENT AND PLAN: 86 y/o lady with multiple medical problems who presented from [place] and was found to have shock . was made comfort measures, extubated but then family decided to revise code status to DNR/DNI 1- septic shock resolved . - blood cx with VRE and urine cx with head-sensitive klebsiella - repeat cx neg to date - cont Dapto and azrtreonam - dc IVF - on po vanco for + c diff AG and diarrhea - echo pending , appreciate ID help. 2- H/o depression: Cont celexa 3- Normocytic anemia: improved after transfusion .iron studies do not indicate iron def family is not interested in any GI w/u 4- Acute delirium, improved , also paranoia improved. 6- Replete K HLOC Visit type - Emergency Visit Emergency Visit: Yes ED Registration Date: 08/10/17 Care time: The patient presented to the Emergency Department on the above date and was hospitalized for further evaluation of their emergent condition. - New Patient This patient is new to me today: No - Critical Care Critical Care patient: No
[2017-08-15] MEDS: OMEGA-3 ACID ETHYL ESTERS (FATTY-ACIDS) 1 GM CAPSULE (FP) PO SCH (13:43)
[2017-08-15] MEDS: MELATONIN 1 MG TABLET PO SCH (23:00)
[2017-08-15] MEDS: SENNOSIDES 8.6MG TABLET (FP) PO SCH (23:04)
[2017-08-16] MEDS ORDERED: PT OWN MED DRAWER 7, Y5N ONE ×4 (01:57→20:59)
[2017-08-16] MEDS: AZTREONAM 1 GM in DEXTROSE 5%-WATER - 50 ML IVPB SCH ×2 (02:03→10:04)
[2017-08-16] MEDS: VANCOMYCIN 250 MG/5 ML ORAL SOLUTION PO SCH ×3 (06:08→17:13)
[2017-08-16] MEDS: LEVOTHYROXINE NA 50 MCG TABLET (FP) PO SCH (06:08)
[2017-08-16] MEDS: PRAMIPEXOLE DIHYDROCHLORIDE 0.25 MG TABLET PO SCH ×3 (06:08→22:26)
[2017-08-16 08:35] LABS: MAGNESIUM 1.9 mg/dL (1.8-2.4); PHOSPHOROUS 2.9 mg/dL (2.5-4.9); POTASSIUM 3.2 mmol/L (3.5-5.1)
[2017-08-16] MEDS: CITALOPRAM HYDROBROMIDE 20 MG TABLET (FP) PO SCH (10:04)
[2017-08-16] MEDS: OMEGA-3 ACID ETHYL ESTERS (FATTY-ACIDS) 1 GM CAPSULE (FP) PO SCH (10:23)
[2017-08-16] MEDS ORDERED: OMEGA-3 ACID ETHYL ESTERS (FATTY-ACIDS) 1 GM CAPSULE (FP) PO SCH (10:24)
[2017-08-16] MEDS: DAPTOMYCIN IVPB SCH (10:24)
[2017-08-16] MEDS: SODIUM CHLORIDE IVPB SCH (10:24)
--- NOTE | 2017-08-16 10:55 | PN ---
Progress Note, Physician Chief Complaint: ID Daptomycin day 4 Aztreonam since admission Aug 11 Oral Vancomycin - Current Medication List Current Medications: Active Medications Acetaminophen (Tylenol Suppository -) 650 mg [place] Q4H PRN PRN Reason: FEVER Last Admin: 08/16/17 10:09 Dose: 650 mg Acetaminophen (Ofirmev Injection -) 1,000 mg IVPB Q6H PRN PRN Reason: PAIN Last Admin: 08/12/17 14:49 Dose: 1,000 mg Citalopram Hydrobromide (Celexa -) 20 mg PO DAILY [facility] Last Admin: 08/16/17 10:04 Dose: 20 mg Aztreonam 1 gm/ Dextrose 50 mls @ 100 mls/hr IVPB Q8H-IV JOHNNY PRN Reason: Protocol Last Admin: 08/16/17 10:04 Dose: 100 mls/hr Daptomycin 360 mg/ Sodium (Chloride) 100 mls @ 200 mls/hr IVPB DAILY JOHNNY PRN Reason: Protocol Last Admin: 08/16/17 10:24 Dose: 200 mls/hr Levothyroxine Sodium (Synthroid -) 50 mcg PO DAILY@0700 [facility] Last Admin: 08/16/17 06:08 Dose: 50 mcg Melatonin (Melatonin) 3 mg PO HS [facility] Last Admin: 08/15/17 23:00 Dose: 3 mg Non-Formulary Medication (Mirabegron [Myrbetriq]) 50 mg PO DAILY [facility] Equpc-8-Tymy Ethyl Esters (Lovaza -) 1 gm PO DAILY [facility] Pramipexole Dihydrochloride (Mirapex -) 0.25 mg PO TID [facility] Last Admin: 08/16/17 06:08 Dose: 0.25 mg Senna (Senna -) 2 tab PO HS [facility] Last Admin: 08/15/17 23:04 Dose: 2 tab Simethicone (Mylicon -) 80 mg PO BID PRN PRN Reason: DYSPEPSIA Vancomycin HCl (Vancomycin Oral Solution) 125 mg PO Q6HPO [facility] Last Admin: 08/16/17 06:08 Dose: 125 mg - Objective Vital Signs: Vital Signs Temperature 98.7 F 08/16/17 06:23 Pulse Rate 89 08/16/17 06:23 Respiratory Rate 20 08/16/17 06:23 Blood Pressure 152/89 08/16/17 06:23 O2 Sat by Pulse Oximetry (%) 95 08/15/17 21:00 Constitutional: Yes: No Distress, Other (Contracted) Cardiovascular: Yes: Regular Rate and Rhythm, S1, S2. No: Murmur Respiratory: Yes: WNL, Regular, CTA Bilaterally Gastrointestinal: Yes: WNL, Normal Bowel Sounds, Soft, Other (Colostomy). No: Tenderness, Tenderness, Epigastrium Edema: No Labs: CBC, BMP 08/15/17 06:00 08/16/17 06:00 INR, PTT INR 1.58 (0.82-1.09) H 08/10/17 04:11 Assessment/Plan Microbiology 08/12/17 20:00 Blood - Peripheral Venous Blood Culture - Preliminary NO GROWTH OBTAINED AFTER 72 HOURS, INCUBATION TO CONTINUE FOR 2 DAYS. Laboratory Tests 08/10/17 08/15/17 08/15/17 06:00 06:00 06:00 WBC 5.5 Hct 34.3 Plt Count 284 BUN 8 Creatinine 0.4 L Ur Leukocyte Esterase 1+ H Urine WBC (Auto) 16 Urine RBC (Auto) 3 Assessment Sepsis syndrome VREF from a blood culture Consider endocarditis Klebsiella in the urine Plan From the standpoint of the urinary tract she could be switched to an oral quinolone for another Continue Daptomcyin for total of 14 days assuming ECHO shows no vegetatations YOHANNES Brooks MD
--- NOTE | 2017-08-16 11:44 | PN ---
Progress Note (short form) - Note Progress Note: Resting in NAD. No CP or SOB. Intake & Output 08/13/17 08/14/17 08/15/17 08/16/17 22:59 22:59 23:59 23:59 Intake Total 200 Balance 200 Last Vital Signs Temp Pulse Resp BP Pulse Ox 98.7 F 89 20 152/89 95 08/16/17 06:23 08/16/17 06:23 08/16/17 06:23 08/16/17 06:23 08/15/17 21:00 Active Medications Acetaminophen (Tylenol Suppository -) [address] Q4H PRN PRN Reason: FEVER Last Admin: 08/16/17 10:09 Dose: 650 mg Acetaminophen (Ofirmev Injection -) 1,000 mg IVPB Q6H PRN PRN Reason: PAIN Last Admin: 08/12/17 14:49 Dose: 1,000 mg Citalopram Hydrobromide (Celexa -) 20 mg PO DAILY [facility] Last Admin: 08/16/17 10:04 Dose: 20 mg Daptomycin 360 mg/ Sodium (Chloride) 100 mls @ 200 mls/hr IVPB DAILY [facility] PRN Reason: Protocol Last Admin: 08/16/17 10:24 Dose: 200 mls/hr Levofloxacin (Levaquin -) 250 mg PO DAILY@0600 [facility] Last Admin: 08/16/17 11:28 Dose: 250 mg Levothyroxine Sodium (Synthroid -) 50 mcg PO DAILY@0700 [facility] Last Admin: 08/16/17 06:08 Dose: 50 mcg Melatonin (Melatonin) 3 mg PO HS [facility] Last Admin: 08/15/17 23:00 Dose: 3 mg Non-Formulary Medication (Mirabegron [Myrbetriq]) 50 mg PO DAILY [facility] Wmpic-9-Pbnm Ethyl Esters (Lovaza -) 1 gm PO DAILY [facility] Pramipexole Dihydrochloride (Mirapex -) 0.25 mg PO TID [facility] Last Admin: 08/16/17 06:08 Dose: 0.25 mg Senna (Senna -) 2 tab PO HS [facility] Last Admin: 08/15/17 23:04 Dose: 2 tab Simethicone (Mylicon -) 80 mg PO BID PRN PRN Reason: DYSPEPSIA Vancomycin HCl (Vancomycin Oral Solution) 125 mg PO Q6HPO [facility] Last Admin: 08/16/17 11:28 Dose: 125 mg GENERAL:Awake and alert, NAD LUNGS: clear HEART: Regular rate and rhythm, normal S1 and S2 without murmur, rub or gallop. ABDOMEN: soft; with colostomy MUSCULOSKELETAL:contracted UPPER EXTREMITIES: 2+ pulses, warm, well-perfused. No cyanosis. No clubbing. No peripheral edema. LOWER EXTREMITIES: 2+ pulses, warm, well-perfused. No calf tenderness. No peripheral edema. Laboratory Results - last 24 hr 08/16/17 08/16/17 06:00 06:00 Potassium 3.2 L Phosphorus 2.9 Magnesium 1.9 C-Reactive Protein 0.6 H Cancelled ASSESSMENT/PLAN: Acute Respiratory Failure Septic Shock Low clinical suspicion of PNA Dementia CVA Colostomy C Diff Antigen (+) Ovarian Ca AMS GI bleed Anemia ABX per ID O2 as needed DNR/DNI Dr Dudley Critical care time spent in reviewing chart, evaluating patient and formulating plan - 36 minutes.
[2017-08-16] MEDS ORDERED: PICC LINE 8 ML FLUSH PROTOCOL IVPUSH PRN (14:07)
--- NOTE | 2017-08-16 15:29 | PN ---
Progress Note, [employer] - Note Progress Note: Selected Entries 08/15/17 08/15/17 08/15/17 06:13 10:00 11:13 Breakfast 50% Lunch Supper Temperature 98.7 F 98.3 F 08/15/17 08/15/17 08/15/17 15:07 17:45 20:04 Breakfast Lunch Supper 25% Temperature 98.2 F 98.1 F 08/15/17 08/16/17 08/16/17 22:00 02:00 06:23 Breakfast Lunch Supper Temperature 98.2 F 98.8 F 98.7 F 08/16/17 08/16/17 08/16/17 09:00 09:26 13:35 Breakfast 25% Lunch 25% Supper Temperature 98.1 F 97.4 F L On Reg diet/finger foods. Eating a little with encouragement.Good tolerance. More appropriate. Grossly oriented. Stating that she will be "discharged t'mw and the question is if she will make it or not."
--- NOTE | 2017-08-16 15:31 | PN ---
Teaching Attending Note Name of Resident: Ca Reynoso ATTENDING PHYSICIAN STATEMENT I saw and evaluated the patient. I reviewed the resident's note and discussed the case with the resident. I agree with the resident's findings and plan as documented. SUBJECTIVE: pain in Legs especially L . no SOB or fever . feels her legs are contracted. OBJECTIVE: NAD , awake , alert , cooperative , knows she is in hospital , adn knows the year CV: RRR Lungs : CTAB Abd: soft, NT, ND , NL BS , LLQ colostomy bag with minimal amount of liquid stoop Ext: no edema,No erythema , contracted legs ASSESSMENT AND PLAN: 86 y/o lady with multiple medical problems who presented from [place] and was found to have shock . was made comfort measures, extubated but then family decided to revise code status to DNR/DNI 1- Septic shock resolved . - blood cx with VRE and urine cx with head-sensitive klebsiella - repeat cx neg to date - appreciate ID Recs , cont dapto for another 10 days ( today is day 09/18) . switched to levaquin for UTI - cont po vanco for + c diff AG and diarrhea. day 4 - echo pending 2- H/o depression: Cont celexa 3- Normocytic anemia: family is not interested in any GI w/u 4- Acute delirium, improved , also paranoia improved. psych eval as outpt 6- Replete K pending echo report , will place PICC line and dc back to [place] . resident to update SW
[2017-08-16] MEDS: POTASSIUM CHLORIDE ORAL LIQUID 20 MEQ/15 ML PO ONE ×2 (16:00→16:05)
[2017-08-16] MEDS ORDERED: traMADol HCL 50 MG TABLET PO PRN (16:48)
--- NOTE | 2017-08-16 18:38 | PN ---
Physical Exam: SUBJECTIVE: Patient seen and examined; c/o left leg pain; states its chronic but worse today; feel uncomfortable and trapped; OBJECTIVE: Vital Signs Period Temp Pulse Resp BP Sys/Forte Pulse Ox Last 24 Hr 97.4 F-98.8 F 81-89 18-20 135-154/77-96 95-95 GENERAL: laying in bed on right side; legs crossed and contracted at baseline LUNGS: Breath sounds equal, clear to auscultation bilaterally, no wheezes, no crackles, no accessory muscle use. HEART: Regular rate and rhythm, S1, S2 without murmur, rub or gallop. ABDOMEN: Soft, nontender, nondistended, normoactive bowel sounds, no guarding, no rebound, no hepatosplenomegaly, no masses. EXTREMITIES: unable to uncross legs PSYCH: anxious SKIN: Warm, dry, normal turgor, no rashes or lesions noted; no visable ulcers seen Laboratory Results - last 24 hr 08/16/17 08/16/17 06:00 06:00 Potassium 3.2 L Phosphorus 2.9 Magnesium 1.9 C-Reactive Protein 0.6 H Cancelled Active Medications Generic Name Dose Route Start Last Admin Trade Name Freq PRN Reason Stop Dose Admin Acetaminophen 650 mg 08/11/17 15:46 08/16/17 10:09 Tylenol Suppository - IA 650 mg Q4H PRN Administration FEVER Acetaminophen 1,000 mg 08/12/17 14:16 08/12/17 14:49 Ofirmev Injection - IVPB 1,000 mg Q6H PRN Administration PAIN Citalopram Hydrobromide 20 mg 08/12/17 10:00 08/16/17 10:04 Celexa - PO 20 mg DAILY JOHNNY Administration Gabapentin 300 mg 08/16/17 22:00 Neurontin - PO BID JOHNNY Daptomycin 360 mg/ Sodium 100 mls @ 200 mls/hr 08/12/17 14:45 08/16/17 10:24 Chloride IVPB 200 mls/hr DAILY JOHNNY Administration Protocol Levofloxacin 250 mg 08/16/17 11:15 08/16/17 11:28 Levaquin - PO 250 mg DAILY@0600 JOHNNY Administration Levothyroxine Sodium 50 mcg 08/12/17 12:00 08/16/17 06:08 Synthroid - PO 50 mcg DAILY@0700 JOHNNY Administration Melatonin 3 mg 08/12/17 22:00 08/15/17 23:00 Melatonin PO 3 mg HS JOHNNY Administration Non-Formulary Medication 50 mg 08/13/17 10:00 Mirabegron [Myrbetriq] PO DAILY JOHNNY Uqrki-3-[place] Ethyl Esters 1 gm 08/16/17 10:24 Lovaza - PO DAILY JOHNNY Pramipexole Dihydrochloride 0.25 mg 08/12/17 14:00 08/16/17 13:47 Mirapex - PO 0.25 mg TID JOHNNY Administration Senna 2 tab 08/12/17 22:00 08/15/17 23:04 Senna - PO 2 tab HS JOHNNY Administration Simethicone 80 mg 08/12/17 10:13 Mylicon - PO BID PRN DYSPEPSIA Tramadol HCl 25 mg 08/16/17 16:48 Ultram - PO Q4H PRN PAIN LEVEL 6-10 Vancomycin HCl 125 mg 08/13/17 18:00 08/16/17 17:13 Vancomycin Oral Solution PO 125 mg Q6HPO JOHNNY Administration ASSESSMENT/PLAN: This is a 86 year old female with a past medical history of stroke with residual lef contracture; SBO; ovarian Ca; BIBA form NH after being found in own feces. She was in septic shock, now resolved. # septic shock sec to bacteremia from UTI; -repeat bld cx negative -echo pendind; r/o vegeations due to bacteremia -cont daptomycin for a total of 14 day; today Day 4; -switch to oral levaquin #+ c diff -cont vancomycin po ; day 4 #normocytic anema: as per chart; no GI involvement as per family #hs of depression /paranoia -cont celexa #hypokalemia: -replete; KCL ; sharla VTE prophylaxis: heparin sq Disposition: patient needs nursing home antibiotics; ten more day; if gping to [place] will need picc line; if going to [facility] does not need picc; need to f/ u with case management; once echo done can d/c Case discussed with attending Dr. Nathalia Reynoso PGY2 Problem List - Problems (1) Septic shock Code(s): A41.9 - SEPSIS, UNSPECIFIED ORGANISM; R65.21 - SEVERE SEPSIS WITH SEPTIC SHOCK Visit type - Emergency Visit Emergency Visit: Yes ED Registration Date: 08/10/17 Care time: The patient presented to the Emergency Department on the above date and was hospitalized for further evaluation of their emergent condition. - New Patient This patient is new to me today: No - Critical Care Critical Care patient: No
[2017-08-16] MEDS: MELATONIN 1 MG TABLET PO SCH (22:26)
[2017-08-16] MEDS: SENNOSIDES 8.6MG TABLET (FP) PO SCH (22:27)
[2017-08-16] MEDS: GABAPENTIN 300 MG CAPSULE (FP) PO SCH (22:27)
[2017-08-17] MEDS: VANCOMYCIN 250 MG/5 ML ORAL SOLUTION PO SCH ×3 (00:39→12:48)
[2017-08-17] MEDS: LEVOTHYROXINE NA 50 MCG TABLET (FP) PO SCH (06:45)
[2017-08-17] MEDS: PRAMIPEXOLE DIHYDROCHLORIDE 0.25 MG TABLET PO SCH ×2 (06:46→15:12)
[2017-08-17 08:15] LABS: CHLORIDE 96 mmol/L (98-107); POTASSIUM 3.4 mmol/L (3.5-5.1); SODIUM 134 mmol/L (136-145)
[2017-08-17 08:19] LABS: ANION GAP 11 (8-16); BLOOD UREA NITROGEN 6 mg/dL (7-18); CALCIUM 8.8 mg/dL (8.5-10.1); CO2 27 mmol/L (21-32); CREATININE 0.4 mg/dL (0.55-1.02); GLUCOSE,RANDOM 88 mg/dL (74-106)
[2017-08-17] MEDS: GABAPENTIN 300 MG CAPSULE (FP) PO SCH (11:25)
[2017-08-17] MEDS: CITALOPRAM HYDROBROMIDE 20 MG TABLET (FP) PO SCH (11:25)
[2017-08-17] MEDS ORDERED: oxyCODONE HCL 5 MG TABLET PO PRN (12:12)
[2017-08-17] MEDS ORDERED: PICC LINE 8 ML FLUSH PROTOCOL IVPUSH PRN (12:32)
[2017-08-17] MEDS: DAPTOMYCIN IVPB SCH (12:47)
[2017-08-17] MEDS: SODIUM CHLORIDE IVPB SCH (12:47)
--- NOTE | 2017-08-17 14:22 | PN ---
Progress Note (short form) - Note Progress Note: Resting in NAD. Some residual dry cough. No CP or SOB. Intake & Output 08/14/17 08/15/17 08/16/17 08/17/17 22:59 23:59 23:59 23:59 Intake Total 750 350 Balance 750 350 Last Vital Signs Temp Pulse Resp BP Pulse Ox 98.6 F 86 18 131/78 95 08/17/17 06:00 08/17/17 06:00 08/17/17 06:00 08/17/17 06:00 08/16/17 21:00 Active Medications Acetaminophen (Tylenol Suppository -) 650 mg NM Q4H PRN PRN Reason: FEVER Last Admin: 08/16/17 10:09 Dose: 650 mg Acetaminophen (Ofirmev Injection -) 1,000 mg IVPB Q6H PRN PRN Reason: PAIN Last Admin: 08/12/17 14:49 Dose: 1,000 mg Citalopram Hydrobromide (Celexa -) 20 mg PO DAILY [facility] Last Admin: 08/17/17 11:25 Dose: Not Given Gabapentin (Neurontin -) 300 mg PO BID [facility] Last Admin: 08/17/17 11:25 Dose: Not Given IV Flush (Picc Line Flush) 8 ml IVPUSH PRN PRN PRN Reason: Protocol Daptomycin 360 mg/ Sodium (Chloride) 100 mls @ 200 mls/hr IVPB DAILY JOHNNY PRN Reason: Protocol Last Admin: 08/17/17 12:47 Dose: 200 mls/hr Levofloxacin (Levaquin -) 250 mg PO DAILY@0600 [facility] Last Admin: 08/17/17 06:45 Dose: 250 mg Levothyroxine Sodium (Synthroid -) 50 mcg PO DAILY@0700 [facility] Last Admin: 08/17/17 06:45 Dose: 50 mcg Melatonin (Melatonin) 3 mg PO HS [facility] Last Admin: 08/16/17 22:26 Dose: 3 mg Non-Formulary Medication (Mirabegron [Myrbetriq]) 50 mg PO DAILY [facility] Mxhqe-6-Brgm Ethyl Esters (Lovaza -) 1 gm PO DAILY [facility] Last Admin: 08/17/17 11:25 Dose: Not Given Oxycodone HCl (Roxicodone -) 5 mg PO Q6H PRN PRN Reason: PAIN LEVEL 6-10 Pramipexole Dihydrochloride (Mirapex -) 0.25 mg PO TID [facility] Last Admin: 08/17/17 06:46 Dose: 0.25 mg Senna (Senna -) 2 tab PO HS [facility] Last Admin: 08/16/17 22:27 Dose: 2 tab Simethicone (Mylicon -) 80 mg PO BID PRN PRN Reason: DYSPEPSIA Tramadol HCl (Ultram -) 25 mg PO Q4H PRN PRN Reason: PAIN LEVEL 6-10 Vancomycin HCl (Vancomycin Oral Solution) 125 mg PO Q6HPO [facility] Last Admin: 08/17/17 12:48 Dose: 125 mg GENERAL:Awake and alert, NAD LUNGS: clear HEART: Regular rate and rhythm, normal S1 and S2 without murmur, rub or gallop. ABDOMEN: soft; with colostomy MUSCULOSKELETAL:contracted UPPER EXTREMITIES: (+) area of digital necrosis LOWER EXTREMITIES: 2+ pulses, warm, well-perfused. No calf tenderness. Laboratory Results - last 24 hr 08/17/17 06:00 Sodium 134 L Potassium 3.4 L Chloride 96 L Carbon Dioxide 27 Anion Gap 11 BUN 6 L Creatinine 0.4 L Random Glucose 88 Calcium 8.8 ASSESSMENT/PLAN: Acute Respiratory Failure Septic Shock Low clinical suspicion of PNA Dementia CVA Colostomy C Diff Antigen (+) Ovarian Ca AMS GI bleed Anemia ABX per ID O2 as needed DNR/DNI Dr Dudley
[2017-08-17] MEDS ORDERED: POTASSIUM CHLORIDE TABS 20 MEQ TABLET.ER (FP) PO ONE (15:03)
--- NOTE | 2017-08-17 15:53 | PN ---
Teaching Attending Note Name of Resident: Stewart Alejandra ATTENDING PHYSICIAN STATEMENT I saw and evaluated the patient. I reviewed the resident's note and discussed the case with the resident. I agree with the resident's findings and plan as documented. SUBJECTIVE: no fever or chills, no events over night OBJECTIVE: NAD, awake , alert , cooperative , knows she is in hospital ,her age and knows the year CV: RRR Lungs : CTAB Abd: soft, NT, ND , NL BS , empty LLQ colostomy bag Ext: no edema,No erythema , contracted legs ASSESSMENT AND PLAN: 86 y/o lady with multiple medical problems who presented from [place] and was found to have shock . was made comfort measures, extubated but then family decided to revise code status to DNR/DNI 1- Septic shock resolved . - blood cx with VRE and urine cx with head-sensitive klebsiella - repeat cx neg to date - cont dapto for another 9 days ( today is day 10/18) . cont levaquin for UTI fro 7 more days ( day 12/18 of UTi tretment ) - cont po vanco for + c diff AG and diarrhea. day 09/14 - echo was poor quality but no vegetations were seen 2- H/o depression: Cont celexa 3- Normocytic anemia: family is not interested in any GI w/u 4- Acute delirium, improved , also paranoia improved. psych eval as outpt dispo : accepted at [place] with IV abx . PICC placed . dc today
--- NOTE | 2017-08-17 16:09 | PN ---
Progress Note, Physician History of Present Illness: Awake and alert Offers no complaints No acute distress Temps down Afebrile BC+ VRE Urine c/s Klebsiella sp. +C difficile ag - Current Medication List Current Medications: Active Medications Acetaminophen (Tylenol Suppository -) 650 mg GA Q4H PRN PRN Reason: FEVER Last Admin: 08/16/17 10:09 Dose: 650 mg Acetaminophen (Ofirmev Injection -) 1,000 mg IVPB Q6H PRN PRN Reason: PAIN Last Admin: 08/12/17 14:49 Dose: 1,000 mg Citalopram Hydrobromide (Celexa -) 20 mg PO DAILY [facility] Last Admin: 08/17/17 11:25 Dose: Not Given Gabapentin (Neurontin -) 300 mg PO BID [facility] Last Admin: 08/17/17 11:25 Dose: Not Given IV Flush (Picc Line Flush) 8 ml IVPUSH PRN PRN PRN Reason: Protocol Daptomycin 360 mg/ Sodium (Chloride) 100 mls @ 200 mls/hr IVPB DAILY [facility] PRN Reason: Protocol Last Admin: 08/17/17 12:47 Dose: 200 mls/hr Levofloxacin (Levaquin -) 250 mg PO DAILY@0600 [facility] Last Admin: 08/17/17 06:45 Dose: 250 mg Levothyroxine Sodium (Synthroid -) 50 mcg PO DAILY@0700 [facility] Last Admin: 08/17/17 06:45 Dose: 50 mcg Melatonin (Melatonin) 3 mg PO HS [facility] Last Admin: 08/16/17 22:26 Dose: 3 mg Non-Formulary Medication (Mirabegron [Myrbetriq]) 50 mg PO DAILY [facility] Wonlr-3-Hwzj Ethyl Esters (Lovaza -) 1 gm PO DAILY [facility] Last Admin: 08/17/17 11:25 Dose: Not Given Oxycodone HCl (Roxicodone -) 5 mg PO Q6H PRN PRN Reason: PAIN LEVEL 6-10 Pramipexole Dihydrochloride (Mirapex -) 0.25 mg PO TID [facility] Last Admin: 08/17/17 15:12 Dose: Not Given Senna (Senna -) 2 tab PO [facility] Last Admin: 08/16/17 22:27 Dose: 2 tab Simethicone (Mylicon -) 80 mg PO BID PRN PRN Reason: DYSPEPSIA Tramadol HCl (Ultram -) 25 mg PO Q4H PRN PRN Reason: PAIN LEVEL 6-10 Vancomycin HCl (Vancomycin Oral Solution) 125 mg PO Q6HPO [facility] Last Admin: 08/17/17 12:48 Dose: 125 mg - Objective Vital Signs: Vital Signs Temperature 98.0 F 08/17/17 15:22 Pulse Rate 87 08/17/17 15:22 Respiratory Rate 20 08/17/17 15:22 Blood Pressure 138/82 08/17/17 15:22 O2 Sat by Pulse Oximetry (%) 95 08/17/17 09:00 Constitutional: Yes: No Distress Cardiovascular: Yes: Regular Rate and Rhythm, S1, S2 Respiratory: Yes: CTA Bilaterally Gastrointestinal: Yes: Normal Bowel Sounds, Soft Edema: No Labs: CBC, BMP 08/15/17 06:00 08/17/17 06:00 INR, PTT INR 1.58 (0.82-1.09) H 08/10/17 04:11 Assessment/Plan VRE bacteremia repeat BC prelim no growth Klebsiella UTI Sepsis syndrome- improved Cephalosporin allergy + C difficile ag Check repeat BC x2 Continue daptomycin Day #5 If echo negative, complete 14d course PO vancomycin Contact precautions
[2017-08-17 17:39] VITALS: BP 115/68; PULSE 88; TEMP 98.2
--- NOTE | 2017-08-17 17:39 | DS ---
Physical Exam: SUBJECTIVE: Patient seen and examined at bedside. She states her legs feel better today, but she continues to experience pain. OBJECTIVE: Vital Signs Period Temp Pulse Resp BP Sys/Forte Pulse Ox Last 24 Hr 97.3 F-98.6 F 86-88 16-20 115-149/68-88 95-95 PHYSICAL EXAM GENERAL: The patient is awake, alert, and fully oriented, in no acute distress. HEAD: Normal with no signs of trauma. NECK: Trachea midline, full range of motion, supple. LUNGS: Breath sounds equal, clear to auscultation bilaterally, no wheezes, no crackles, no accessory muscle use. HEART: Regular rate and rhythm, S1, S2 without murmur, rub or gallop. ABDOMEN: Soft, nontender, nondistended, normoactive bowel sounds, no guarding, no rebound, no hepatosplenomegaly, no masses. colostomy bag in place. EXTREMITIES: 2+ pulses, warm, well-perfused, no edema. Both lower extremities contracted, with the left worse than the right. NEUROLOGICAL: Cranial nerves II through X grossly intact. Normal speech, gait not observed. PSYCH: Normal mood, normal affect. SKIN: Warm, dry, normal turgor, no rashes or lesions noted. LABS Laboratory Results - last 24 hr 08/17/17 06:00 Sodium 134 L Potassium 3.4 L Chloride 96 L Carbon Dioxide 27 Anion Gap 11 BUN 6 L Creatinine 0.4 L Random Glucose 88 Calcium 8.8 HOSPITAL COURSE: Date of Admission:08/10/17 The patient is an 86 yo f w/ PMH mild dementia, stroke w/ residual lt leg contracture, ovarian Ca who was BIBEMS from [place] after being found to have a fever to 103 and hypotension with SBP in the 80's. In the ER, she was intubated and placed on pressors. A chest xray at this time showed an ill defined density in the left midlung field. blood cultures grew Vr. Ec. Faecum and urine cultures grew Klebsiella oxytoca. The patient was transferred to the ICU for further management. Patient was extubated later that same day at the request of her HCP. Stool was positive for C. Diff toxin. Infectious disease specialists were consulted. Gastroenterology was consulted. She was treated with Vancomycin , Levaquin, aztreonam, flagyl and daptomycin. CT head was negative for acute pathology. She was transferred to the floor and improved clinically. The patient 's HCP made the decision to withdraw care except for completing her course of antibiotics. The patient was transferred to [facility] for further care. Date of Discharge: 08/17/17 Minutes to complete discharge: 30 Discharge Summary Reason For Visit: SEVERE SEPSIS Current Active Problems C. difficile enteritis (Acute) Anemia (Chronic) Dementia (Chronic) Condition: Stable - Instructions Diet, Activity, Other Instructions: You were admitted for an infection in your blood. You are being transferred to [facility] for further care. You are being sent with a catheter in your arm to continue your antibiotics when you get there. You should continue taking your antibiotics as directed for the next 9 days. We are also sending you an antibiotic to take as a pill. This medication is called vancomycin. You should take this medication daily for the next 5 days. If you begin to experience chest pain, shortness of breath or if any of your symptoms get worse, please call your doctor or return to the emergency department. finger food Disposition: [facility] - Home Medications Comprehensive Discharge Medication List: Ambulatory Orders Acetaminophen [Tylenol .Regular Strength -] 650 mg PO Q6H PRN 08/10/17 Amitriptyline HCl 25 mg PO HS 08/10/17 Baclofen [Lioresal -] 10 mg PO QID 08/10/17 Beta-Carotene(A)-Vits C and E [E-400 C-500 & Beta Carotene] 1 each PO DAILY 11/22 Bisacodyl Suppository [Dulcolax Suppository -] 10 mg RC HS PRN 08/10/17 Cholecalciferol (Vitamin D3) [Vitamin D3] 1,000 unit PO DAILY 08/10/17 Citalopram Hydrobromide [Celexa -] 20 mg PO HS 08/10/17 Docusate Sodium [Colace] 100 mg PO TID 08/10/17 Estradiol [Estrace] 42.5 gm VG ASDIR 08/10/17 Fesoterodine Fumarate [Toviaz] 4 mg PO DAILY 08/10/17 Gabapentin [Neurontin] 300 mg PO BID 08/10/17 Galantamine HBr [Razadyne ER] 8 mg PO DAILY 08/10/17 Lactobacillus Acidophilus [Acidophilus] 1 each PO BID 08/10/17 Levothyroxine [Synthroid -] 50 mcg PO DAILY 08/10/17 Linaclotide [Linzess] 290 mcg PO DAILY 08/10/17 Mag Hydrox/Al Hydrox/Simeth [Mylanta Oral Suspension -] 30 ml PO Q6H PRN Magnesium Hydrox 2400MG/30Ml [Milk of Magnesia -] 30 ml PO DAILY PRN 08/10/17 Melatonin 3 mg PO HS 08/10/17 Mirabegron [Myrbetriq] 50 mg PO DAILY 08/10/17 Multivitamins [Multivit ([facility] Formulary)] 1 tab PO DAILY 08/10/17 Thicket-3 Fatty Acids [Thicket-3] 1,000 mg PO DAILY 08/10/17 Pramipexole Di-HCl [Mirapex] 0.25 mg PO TID 08/10/17 Sennosides [Senokot] 17.2 mg PO HS 08/10/17 Simethicone 80 mg PO BID PRN 08/10/17 Sodium Chloride 1,000 mg PO BID 08/10/17 Ubidecarenone [Co Q-10] 100 mg PO DAILY 08/10/17 oxyCODONE SR [Oxycontin] 10 mg PO Q12H 08/10/17 Daptomycin [Cubicin (Restricted To Id) -] 360 mg IVPB DAILY 9 Days vial Picc Line Flush [Picc Line Flush -] 8 ml IVPUSH PRN PRN ml 08/17/17 Vancomycin Oral Solution 125 mg PO Q6HPO 5 Days ml 08/17/17 levoFLOXacin [Levaquin -] 250 mg PO DAILY@0600 7 Days tablet 08/17/17 This patient is new to me today: Yes Date on this admission: 08/17/17 Emergency Visit: Yes ED Registration Date: 08/10/17 Care time: The patient presented to the Emergency Department on the above date and was hospitalized for further evaluation of their emergent condition. Critical Care patient: No - Discharge Referral Referred to [facility] Med P.C.: No
== END 2017-08-17 18:18 | disposition hospice, inpatient (51) | DRG 871 ==
LOC: JER 03:17 → JERBED 05:25 → JICU 08:46 → J7W 08-11 16:55
PROVIDERS: ADMIT Internal Medicine; ATTEND Internal Medicine
PROC: 5A1935Z Respiratory Ventilation, Less than 24 Consecutive Hours (ICD-10-PCS; principal; 2017-08-10)
PROC: 0BH17EZ Insertion of Endotracheal Airway into Trachea, Via Natural or Artificial Opening (ICD-10-PCS; 2017-08-10)
PROC: 30233N1 Transfusion of Nonautologous Red Blood Cells into Peripheral Vein, Percutaneous Approach (ICD-10-PCS; 2017-08-10)
PROC: 02HV33Z Insertion of Infusion Device into Superior Vena Cava, Percutaneous Approach (ICD-10-PCS; 2017-08-17)
PROC: B518ZZA Fluoroscopy of Superior Vena Cava, Guidance (ICD-10-PCS; 2017-08-17)
DX: A41.9 Sepsis, unspecified organism (principal); R65.21 Severe sepsis with septic shock; J96.01 Acute respiratory failure with hypoxia; R53.2 Functional quadriplegia; A04.72 Enterocolitis due to Clostridium difficile, not specified as recurrent; N39.0 Urinary tract infection, site not specified; D62 Acute posthemorrhagic anemia; F03.90 Unspecified dementia, unspecified severity, without behavioral disturbance, psychotic disturbance, mood disturbance, and anxiety; B96.1 Klebsiella pneumoniae [K. pneumoniae] as the cause of diseases classified elsewhere; F32.9 Major depressive disorder, single episode, unspecified; D64.9 Anemia, unspecified; R41.0 Disorientation, unspecified; E87.6 Hypokalemia; E03.9 Hypothyroidism, unspecified; R33.9 Retention of urine, unspecified; E83.51 Hypocalcemia; R41.82 Altered mental status, unspecified
CPT/HCPCS: 36415; 36430; 36569; 36600; 70450-TC; 71045-TC-FY; 77001-TC-FY; 80048; 80053; 81003; 81015; 82272; 82550; 82607; 82728; 82746; 82803; 83540; 83550; 83605; 83735; 84100; 84132; 84439; 84443; 84484; 85025; 85027; 85610; 85730; 86140; 86850; 86900; 86901; 86922; 87040; 87086; 87186; 87324; 87449; 93005; 93010; 93306-TC; 93970-TC; 97161-GP; 99283-25; C1751; G0480; J0131; J0878; J7030; P9038; P9058